=== PATIENT | male | born 1955 | race American Indian/Alaskan Native ===

== ENCOUNTER 2017-08-03 14:21 | Inpatient (IN) | payer OTHER ==
[2017-08-03 14:33] VITALS: BMI 27.3
[2017-08-03] MEDS ORDERED: Sodium Chloride 0.9% 1,000 ML IV ONE ×2 (14:33→14:34)
--- NOTE | 2017-08-03 14:33 | C.PDOC ---
History Of Present Illness <Donna Blake - Last Filed: 08/03/17 14:55> <BatshevaNicole irby - Last Filed: 08/06/17 22:18> 62 y/o male with Hx of COPD brought by ems with complaints of sob while driving. As per EMS Patient was driving by the tunnel and felt sob, pulled over and called 911. Patient had decreased breath sounds, became hypoxic, apneic, unresponsive and attempted to be intubated on the field x2 times unsuccessfully secondary to anatomic obstruction as per EMS. Patient was given Solumedrol, Terbutiliine and magnesium s/p RSI drugs. As per ems patient denies angioedema. No other complaints at this time. (Donna Blake) History Per: EMS History/Exam Limitations: clinical condition Onset/Duration Of Symptoms: Hrs Current Symptoms Are (Timing): Still Present Initiating Event: Upper Respiratory Illness <Donna Blake - Last Filed: 08/03/17 14:55> <BatshevaNicole irby Donnell - Last Filed: 08/06/17 22:18> Time Seen by Provider: 08/03/17 14:32 Chief Complaint (Nursing): Respiratory Distress Past Medical History Reviewed: Historical Data, Nursing Documentation, Vital Signs - Medical History PMH: COPD Surgical History: No Surg Hx Family History: States: No Known Family Hx <Donna Blake - Last Filed: 08/03/17 14:55> Vital Signs: Last Vital Signs Temp 97.8 F 08/06/17 16:04 Pulse 71 08/06/17 16:04 Resp 20 08/06/17 16:04 BP 154/81 H 08/06/17 16:04 Pulse Ox 98 08/06/17 16:04 Review Of Systems Review Of Systems: ROS cannot be obtained secondary to pt's inabilty to answer questions. <Donna Blake - Last Filed: 08/03/17 14:55> Physical Exam - Physical Exam Appears: Other (Unresponsive) Skin: Warm, Diaphoretic Head: Normacephalic Oral Mucosa: Moist, Other (LMA PRESENT) Tongue: Normal Appearing, No Swelling Lips: Normal Appearing Neck: Normal, Trachea Midline Chest: Other (equal chest rise ) Cardiovascular: Rhythm Regular, Other (Tachycardic) Respiratory: Decreased Breath Sounds (Bilateral), No Accessory Muscle Use (NO SPONT RESP), No Wheezing Gastrointestinal/Abdominal: Soft, No Tenderness Extremity: No Pedal Edema, Capillary Refill Extremity: Bilateral: Atraumatic, No Pedal Edema Pulses: Left Radial: Normal, Right Radial: Normal Neurological/Psych: No Response To Commands, Other (UNRESPONSIVE) Pain Response: No Response To Pain <Donna Blake - Last Filed: 08/03/17 14:55> ED Course And Treatment - Laboratory Results Result Diagrams: 08/03/17 14:41 08/03/17 14:41 ECG: Interpreted By Me, Viewed By Me ECG Rhythm: Sinus Tachycardia ECG Interpretation: Abnormal Rate From EC (bpm) O2 Sat by Pulse Oximetry: 96 (RA) Pulse Ox Interpretation: Normal - Radiology CXR: Interpreted by Me CXR Interpretation: Yes: Other (ETT AT [facility]) <Donna Blake - Last Filed: 08/03/17 14:55> - Laboratory Results Result Diagrams: 08/05/17 06:33 08/05/17 06:33 <Nicole Herman - Last Filed: 08/06/17 22:18> Progress - Data Reviewed Data Reviewed: Lab, Diagnostic imaging, EKG, Old records - Critical Care Citical Care: Excluding Proc Time Critical Care Time: 120 minutes - Continuity of Care Discussed patient case with:: Patient Discussed pt. case with data power consultant/specialty: Pulmonary/Crit. Care <Donna Blake - Last Filed: 08/03/17 14:55> <Nicole Herman - Last Filed: 08/06/17 22:18> - Re-Evaluation Re-evaluation Note: 08/03/17 14:15 anesthesia, dr hilario @ bedside for emergent intubation. (Donna Blake) Disposition <Donna Blake - Last Filed: 08/03/17 14:55> - Disposition Disposition Time: 16:09 <Nicole Herman - Last Filed: 08/06/17 22:18> - Disposition Condition: FAIR - Clinical Impression Clinical Impression: Respiratory failure, Asthma exacerbation - Scribe Statement The provider has reviewed the documentation as recorded by the Scribe <Donna Blake - Last Filed: 08/03/17 14:55> <Nicole Herman - Last Filed: 08/06/17 22:18> - Scribe Statement Edgardo Morrissey All medical record entries made by the Scribe were at my direction and personally dictated by me. I have reviewed the chart and agree that the record accurately reflects my personal performance of the history, physical exam, medical decision making, and the department course for this patient. I have also personally directed, reviewed, and agree with the discharge instructions and disposition. (Donan Blake) Physician Patient Turnover Patient Signed Over To: Nicole Herman Handoff Comments: FU LABS, REPEAT CXR, DISPO <Donna Blake - Last Filed: 08/03/17 14:55> Addendum <Donna Blake - Last Filed: 08/03/17 14:55> <Nicole Herman - Last Filed: 08/06/17 22:18> Addendum: 08/03/17 16:[address] Fields, she agrees with ICU admission for asthma /copd exacerbation, respiratory failure- intenisivist Dr. Hilario aware. ( Nicole Herman)
[2017-08-03] MEDS ORDERED: Etomidate 20 mg/10ml Inj IV STA (14:35)
[2017-08-03] MEDS ORDERED: Succinylcholine Chloride 20 mg/ml Syr (5 ml) IV STA (14:35)
[2017-08-03 14:45] LABS: BASO # 0.1 K/uL (0.0-0.2); BASO % 0.5 % (0.0-2.0); EOS # 0.3 K/uL (0.0-0.7); LYMPH # 3.9 K/uL (1.0-4.3); LYMPH % 38.1 % (20.0-40.0); MEAN CELL VOLUME 86.7 fL (80.0-94.0); MEAN CORPUSCULAR HEMOGLOBIN 27.9 pg (27.0-31.0); MEAN CORPUSCULAR HGB CONC 32.2 g/dL (33.0-37.0); MEAN PLATELET VOLUME 10.5 fL (7.2-11.7); MONO # 0.6 K/uL (0.0-0.8); MONO % 5.8 % (0.0-10.0); NRBC % 0.1 % (0.0-2.0); WHITE BLOOD COUNT 10.1 K/uL (4.8-10.8)
[2017-08-03] MEDS ORDERED: Propofol 10 mg/ml Inj (100 ml) IV SCH (14:45)
[2017-08-03] MEDS ORDERED: Propofol 10 mg/ml Inj (20 ML) IV STA (14:47)
[2017-08-03] MEDS ORDERED: Propofol 10 mg/ml 1,000 MG/100 ML VIAL ONE (14:48)
[2017-08-03 14:53] LABS: CHLORIDE 96 mmol/L (98-107); POTASSIUM 4.4 mmol/L (3.6-5.2); SODIUM 135 mmol/L (132-148)
[2017-08-03 14:55] LABS: AST/SGOT 27 U/L (17-59); BILIRUBIN,TOTAL 0.7 mg/dL (0.2-1.3); CARBON DIOXIDE 24 mmol/L (22-30); GFR AFRICAN-AMERICAN > 60
[2017-08-03 14:56] LABS: ALB/GLOB RATIO 1.2 (1.0-2.1); ALKALINE PHOSPHATASE 105 U/L (38-126); ALT/SGPT 30 U/L (21-72); BLOOD UREA NITROGEN 15 mg/dL (9-20); CALCIUM 8.2 mg/dl (8.6-10.4); GLUCOSE,RANDOM 216 mg/dL (75-110); TOTAL PROTEIN 7.6 g/dL (6.3-8.3)
[2017-08-03] MEDS ORDERED: Propofol 10 mg/ml Inj (20 ML) ONE (14:57)
[2017-08-03] MEDS: Propofol 10 mg/ml 1,000 MG/100 ML VIAL IV PRN ×2 (15:08→23:46)
[2017-08-03] MEDS ORDERED: Albuterol-Ipratrop 3 mg / 0.5 (3 ml) UD ONE (15:24)
[2017-08-03] MEDS ORDERED: Sodium Chloride 0.9% 1,000 ML ONE (15:33)
[2017-08-03] MEDS: Albuterol 0.083% Inhal Sol (2.5 mg/3 mL) UD INH SCH ×3 (15:35→16:01)
[2017-08-03 15:42] LABS: ABG ALLEN TEST POS; ABG MECHANICAL RATE 16; ARTERIAL BLOOD GAS MODE PRVC; ATERIAL BLOOD GAS PEEP 5; DRAW SITE RRA
--- NOTE | 2017-08-03 15:42 | RAD ---
HISTORY: REPEAT ETT ADJUST COMPARISON: Chest x-ray performed 08/03/17 at 1438 hours TECHNIQUE: Chest, one view. FINDINGS: Examination limited by habitus. LUNGS: Distal tip of the endotracheal tube terminates approximately 5.1 cm above the guru. 2 external defibrillator pads project over the left matt thorax limiting evaluation of the underlying parenchyma. No focal consolidation. Please note that chest x-ray has limited sensitivity for the detection of pulmonary masses. PLEURA: No significant pleural effusion identified. No definite pneumothorax . CARDIOVASCULAR: Heart size appears within normal limits. OSSEOUS STRUCTURES: Degenerative changes of the spine. VISUALIZED UPPER ABDOMEN: Unremarkable. OTHER FINDINGS: None. IMPRESSION: Distal tip of the endotracheal tube terminates approximately 5.1 cm above the guru. 2 external defibrillator pads project over the left matt thorax limiting evaluation of the underlying parenchyma.
--- NOTE | 2017-08-03 15:43 | RAD ---
HISTORY: SOB COMPARISON: No prior. TECHNIQUE: Chest, one view. FINDINGS: LUNGS: Distal tip of the endotracheal tube terminates approximately 6.3 cm above the guru. Two external defibrillator pads project over the left matt thorax obscuring evaluation of the underlying parenchyma. No focal consolidation. Please note that chest x-ray has limited sensitivity for the detection of pulmonary masses. PLEURA: No significant pleural effusion identified. No definite pneumothorax . CARDIOVASCULAR: Heart size appears within normal limits. OSSEOUS STRUCTURES: Degenerative changes. VISUALIZED UPPER ABDOMEN: Unremarkable. OTHER FINDINGS: None. IMPRESSION: Distal tip of the endotracheal tube terminates approximately 6.3 cm above the guru. Two external defibrillator pads project over the left matt thorax obscuring evaluation of the underlying parenchyma.
--- NOTE | 2017-08-03 16:52 | CP.PCM.CON ---
<Harrison Justice Cole - Last Filed: 08/03/17 19:08> History of Present Illness - History of Present Illness History of Present Illness: HPI: Patient is a 62 year old male with a past medical history of COPD and asthma who presents to the ED with respiratory distress. As per ED note, patient was driving while he started to experience shortness of breath. Patient pulled over on the side of the road in order to obtain assistance. On the field , intubation was attempted 2x unsuccessfully. Patient was given Solumedrol, Terbutiliine and magnesium s/p RSI drugs on the field. Patient was immediately intubated upon arrival to the ED. Therefore, ROS and history was not obtained. Review of Systems - Review of Systems Review of Systems: Unable to obtain due to patient being intubated. Past Patient History - Past Social History Smoking Status: Unknown If Ever Smoked - PULMONARY Hx Chronic Obstructive Pulmonary Disease (COPD): Yes - PSYCHIATRIC Hx Substance Use: No Meds Allergies/Adverse Reactions: Allergies Allergy/AdvReac Type Severity Reaction Status Date / Time Unobtainable Allergy Unverified 08/03/17 14:27 - Medications Medications: Current Medications Sodium Chloride (Sodium Chloride 0.9%) 1,000 mls @ 250 mls/hr IV .Q4H ONE Stop: 08/03/17 18:32 Last Admin: 08/03/17 15:15 Dose: 250 mls/hr Propofol (Diprivan) 1,000 mg in 100 mls @ 2.381 mls/hr IV .Q24H PRN; Protocol; 5 MCG/KG/MIN PRN Reason: TITRATE PER MD ORDER Last Titration: 08/03/17 16:30 Dose: 10 mcg/kg/min, 4.763 mls/hr Physical Exam - Head Exam Head Exam: ATRAUMATIC - Respiratory Exam Respiratory Exam: Clear to Auscultation Bilateral, NORMAL BREATHING PATTERN - Cardiovascular Exam Cardiovascular Exam: REGULAR RHYTHM, +S1, +S2 - GI/Abdominal Exam GI & Abdominal Exam: Normal Bowel Sounds, Soft - Extremities Exam Extremities exam: Negative for: pedal edema, tenderness (Patient is intubated ) Results - Vital Signs Recent Vital Signs: Last Vital Signs Temp 98.9 F 08/03/17 16:22 Pulse 115 H 08/03/17 16:22 Resp 16 08/03/17 16:22 BP 127/61 08/03/17 16:22 Pulse Ox 100 08/03/17 16:22 - Labs Result Diagrams: 08/03/17 14:41 08/03/17 14:41 Labs: Laboratory Results - last 24 hr 08/03/17 08/03/17 08/03/17 14:41 14:41 15:39 WBC 10.1 RBC 5.54 Hgb 15.5 Hct 48.0 MCV 86.7 MCH 27.9 MCHC 32.2 L RDW 14.0 Plt Count 182 MPV 10.5 Neut % (Auto) 52.6 Lymph % (Auto) 38.1 [place] % (Auto) 5.8 Eos % (Auto) 3.0 Baso % (Auto) 0.5 Neut # 5.3 Lymph # 3.9 [place] # 0.6 Eos # 0.3 Baso # 0.1 Puncture Site Rra pCO2 61 H pO2 171 H HCO3 23.7 ABG pH 7.25 L ABG Total CO2 28.7 H ABG O2 Saturation 99.7 H ABG Base Excess -1.7 Gerald Test Pos ABG Potassium 3.7 A-a O2 Difference 466.0 Respiratory Index 2.7 Glucose 169 H Lactate 1.4 Vent Mode Prvc Mechanical Rate 16 FiO2 100.0 Tidal Volume 500 PEEP 5 Sodium 135 135.0 Potassium 4.4 Chloride 96 L 105.0 Carbon Dioxide 24 Anion Gap 19 BUN 15 Creatinine 1.1 Est GFR ( Amer) > 60 Est GFR (Non-Af Amer) > 60 Random Glucose 216 H Calcium 8.2 L Magnesium 3.0 H Total Bilirubin 0.7 AST 27 ALT 30 Alkaline Phosphatase 105 Troponin I < 0.0120 NT-Pro-B Natriuret Pep 33.1 Total Protein 7.6 Albumin 4.1 Globulin 3.5 Albumin/Globulin Ratio 1.2 Arterial Blood Potassium 3.7 Assessment & Plan - Assessment and Plan (Free Text) Assessment: 62 year old male with past medical history of COPD admitted for respiratory distress: Plan: PULM: * Intubated upon arrival to the ER on sedation * Sedation: Propofol 1,000mg @ 2.381mls/hr IV Q24H * Duonebs 3ML INH RQ6 * Pulmicort 0.5mg INH RQ12H * Solumedrol 40mg Q12H * F/u am chest X-ray and ABGs Prophylaxis: DVT: heparin 5,000 units SC Q12H, SCDs GI: Protonix 40mg IVP daily <Dev Hilario P - Last Filed: 08/03/17 20:21> Meds - Medications Medications: Current Medications Albuterol/Ipratropium (Duoneb 3 Mg/0.5 Mg (3 Ml) Ud) 3 ml INH RQ6 [facility] Budesonide (Pulmicort Respules) 0.5 mg INH RQ12 [facility] Heparin Sodium (Porcine) (Heparin) 5,000 units SC Q12 [facility] Sodium Chloride (Sodium Chloride 0.9%) 1,000 mls @ 250 mls/hr IV .Q4H ONE Stop: 08/03/17 18:32 Last Admin: 08/03/17 15:15 Dose: 250 mls/hr Propofol (Diprivan) 1,000 mg in 100 mls @ 2.381 mls/hr IV .Q24H PRN; Protocol; 5 MCG/KG/MIN PRN Reason: TITRATE PER MD ORDER Last Titration: 08/03/17 16:30 Dose: 10 mcg/kg/min, 4.763 mls/hr Methylprednisolone (Solu-Medrol) 40 mg IV Q12 [facility] Pantoprazole Sodium (Protonix Inj) 40 mg IVP DAILY [facility] Results - Vital Signs Recent Vital Signs: Last Vital Signs Temp 98.6 F 08/03/17 16:46 Pulse 105 H 08/03/17 18:10 Resp 20 08/03/17 18:10 BP 113/67 08/03/17 17:41 Pulse Ox 99 08/03/17 18:10 - Labs Result Diagrams: 08/03/17 14:41 08/03/17 14:41 Labs: Laboratory Results - last 24 hr 08/03/17 08/03/17 08/03/17 14:41 14:41 15:39 WBC 10.1 RBC 5.54 Hgb 15.5 Hct 48.0 MCV 86.7 MCH 27.9 MCHC 32.2 L RDW 14.0 Plt Count 182 MPV 10.5 Neut % (Auto) 52.6 Lymph % (Auto) 38.1 [place] % (Auto) 5.8 Eos % (Auto) 3.0 Baso % (Auto) 0.5 Neut # 5.3 Lymph # 3.9 [place] # 0.6 Eos # 0.3 Baso # 0.1 Puncture Site Rra pCO2 61 H pO2 171 H HCO3 23.7 ABG pH 7.25 L ABG Total CO2 28.7 H ABG O2 Saturation 99.7 H ABG Base Excess -1.7 Gerald Test Pos ABG Potassium 3.7 A-a O2 Difference 466.0 Respiratory Index 2.7 Glucose 169 H Lactate 1.4 Vent Mode Prvc Mechanical Rate 16 FiO2 100.0 Tidal Volume 500 PEEP 5 Sodium 135 135.0 Potassium 4.4 Chloride 96 L 105.0 Carbon Dioxide 24 Anion Gap 19 BUN 15 Creatinine 1.1 Est GFR ( Amer) > 60 Est GFR (Non-Af Amer) > 60 Random Glucose 216 H Calcium 8.2 L Magnesium 3.0 H Total Bilirubin 0.7 AST 27 ALT 30 Alkaline Phosphatase 105 Troponin I < 0.0120 NT-Pro-B Natriuret Pep 33.1 Total Protein 7.6 Albumin 4.1 Globulin 3.5 Albumin/Globulin Ratio 1.2 Arterial Blood Potassium 3.7 Attending/Attestation - Attestation I have personally seen and examined this patient.: Yes I have fully participated in the care of the patient.: Yes I have reviewed all pertinent clinical information: Yes Notes (Text): 08/03/17 18:27 Patient seen in ER brought in by EMT with Joshua's tube, intubated by me with tube 7.5 see intubation note. As per the EMT patient was driving felt sob and pulled over, was speaking in words when see by EMP appeared to be wheezing and failed intuabation 2 attempts at the field and brought sedated with Joshua's tube. VS maintained spo2 94% in ER. Patient had diminished breath sounds b/l. Post intubation had wheezing b/l. Patient sedated. CXR didn't show any infiltrate. Patient brought in to ICU being w/u. PMH, psh, meds, family details not available. 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
[2017-08-03 18:34] LABS: INR 1.1
[2017-08-03 19:04] LABS: RBC URINE 180 /hpf (0-3); URINE BILIRUBIN NEGATIVE (NEGATIVE); URINE BLOOD 3+ (NEGATIVE); URINE COLOR Yellow (YELLOW); URINE GLUCOSE (UA) NORMAL (Normal); URINE KETONE NEGATIVE (NEGATIVE); URINE LEUKOCYTE ESTERASE TRACE Leu/uL (Negative); URINE PROTEIN 1+ mg/dL (NEGATIVE); URINE UROBILINOGEN NORMAL mg/dL (0.2-1.0); WBC URINE 4 /hpf (0-5)
[2017-08-03 19:21] LABS: ABG ALLEN TEST POS; ABG MECHANICAL RATE 20; ARTERIAL BLOOD GAS MODE A/C; ARTERIAL BLOOD HGB O2 SAT 97.5 % (95.0-98.0); ATERIAL BLOOD GAS PEEP 5; CARBOXYHEMOGLOBIN 1.2 % (0.5-1.5); DRAW SITE RRA; HHB 0.3 % (0.0-5.0)
[2017-08-03] MEDS ORDERED: Moxifloxacin IV 400mg/250ml NS 400 MG/250 ML BAG IVPB SCH (19:30)
[2017-08-03] MEDS: Sodium Chloride 0.9% 1,000 ML IV SCH (20:10)
[2017-08-03] MEDS: Albuterol-Ipratrop 3 mg / 0.5 (3 ml) UD INH SCH (20:12)
[2017-08-03] MEDS: Budesonide 0.5 mg/2 ml Inhal Susp UD INH SCH (20:12)
--- NOTE | 2017-08-03 20:40 | PCM.PROC ---
Procedures Attestation:: I certify that I have explained the specified Operation(s) or Procedure(s), risks, benefits and reasonable alternatives to the Patient and/or other person responsible. The opportunity was given to ask questions and all questions answered - Intubation Time Out Performed: Yes Sedative: Etomidate, Other (ativan 2mg iv) Paralytic: Succinylholine (60mg) Laryngoscope: [place] (4) ET Tube Size: 7.5 ET Tube Uncuffed: No ET Tube Secured at Depth: 24 ET Tube Secured [place]: Lips ET Tube Placement Confirmation: Visualized Passing Through Cords, Breath Sounds Equal Bilaterally, No Breath Sounds Over Epigastrum, Confirmation w/Capnometry Patient Tolerated Procedure: Well Procedure Immediate Complications: None (ET tip above guru)
[2017-08-03] MEDS ORDERED: Iohexol 350mg/ml 100 ML ONE (21:34)
[2017-08-03] MEDS: MethylPREDNISolone 40 mg Vial IV SCH (22:06)
--- NOTE | 2017-08-03 22:25 | CP.PCM.HP ---
History of Present Illness - History of Present Illness History of Present Illness: pt is seen and examined , H & P dictated for. Dr. Campbell #[id number] Present on Admission - Present on Admission Any Indicators Present on Admission: No History of DVT/PE: No History of Uncontrolled Diabetes: No Urinary Catheter: No Past Patient History - Past Social History Smoking Status: Unknown If Ever Smoked - PULMONARY Hx Chronic Obstructive Pulmonary Disease (COPD): Yes - PSYCHIATRIC Hx Substance Use: No Meds Allergies/Adverse Reactions: Allergies Allergy/AdvReac Type Severity Reaction Status Date / Time Unobtainable Allergy Unverified 08/03/17 14:27 Results - Vital Signs Recent Vital Signs: Last Vital Signs Temp 98.6 F 08/03/17 16:46 Pulse 94 H 08/03/17 19:10 Resp 20 08/03/17 19:10 BP 103/76 08/03/17 18:41 Pulse Ox 100 08/03/17 19:10 - Labs Result Diagrams: 08/03/17 14:41 08/03/17 14:41 Labs: Laboratory Results - last 24 hr 08/03/17 08/03/17 08/03/17 14:41 14:41 15:39 WBC 10.1 RBC 5.54 Hgb 15.5 Hct 48.0 MCV 86.7 MCH 27.9 MCHC 32.2 L RDW 14.0 Plt Count 182 MPV 10.5 Neut % (Auto) 52.6 Lymph % (Auto) 38.1 [place] % (Auto) 5.8 Eos % (Auto) 3.0 Baso % (Auto) 0.5 Neut # 5.3 Lymph # 3.9 [place] # 0.6 Eos # 0.3 Baso # 0.1 PT INR APTT D-Dimer, Quantitative Puncture Site Rra pCO2 61 H pO2 171 H HCO3 23.7 ABG pH 7.25 L ABG Total CO2 28.7 H ABG O2 Saturation 99.7 H ABG Base Excess -1.7 ABG Hemoglobin ABG Carboxyhemoglobin POC ABG HHb (Measured) ABG Methemoglobin Gerald Test Pos ABG Potassium 3.7 A-a O2 Difference 466.0 Respiratory Index 2.7 Hgb O2 Saturation Glucose 169 H Lactate 1.4 Vent Mode Prvc Mechanical Rate 16 FiO2 100.0 Tidal Volume 500 PEEP 5 Sodium 135 135.0 Potassium 4.4 Chloride 96 L 105.0 Carbon Dioxide 24 Anion Gap 19 BUN 15 Creatinine 1.1 Est GFR ( Amer) > 60 Est GFR (Non-Af Amer) > 60 Random Glucose 216 H Calcium 8.2 L Magnesium 3.0 H Total Bilirubin 0.7 AST 27 ALT 30 Alkaline Phosphatase 105 Troponin I < 0.0120 NT-Pro-B Natriuret Pep 33.1 Total Protein 7.6 Albumin 4.1 Globulin 3.5 Albumin/Globulin Ratio 1.2 Arterial Blood Potassium 3.7 Urine Color Urine Clarity Urine pH Ur Specific [place] Urine Protein Urine Glucose (UA) Urine Ketones Urine Blood Urine Nitrate Urine Bilirubin Urine Urobilinogen Ur Leukocyte Esterase Urine WBC (Auto) Urine RBC (Auto) Ur Squamous Epith Cells Urine Opiates Screen Urine Methadone Screen Ur Barbiturates Screen Ur Phencyclidine Scrn Ur Amphetamines Screen U Benzodiazepines Scrn U Oth Cocaine Metabols U Cannabinoids Screen 08/03/17 08/03/17 08/03/17 17:49 17:49 17:49 WBC RBC Hgb Hct MCV MCH MCHC RDW Plt Count MPV Neut % (Auto) Lymph % (Auto) [place] % (Auto) Eos % (Auto) Baso % (Auto) Neut # Lymph # [place] # Eos # Baso # PT 12.8 H INR 1.1 APTT 25 D-Dimer, Quantitative 859 H Puncture Site pCO2 pO2 HCO3 ABG pH ABG Total CO2 ABG O2 Saturation ABG Base Excess ABG Hemoglobin ABG Carboxyhemoglobin POC ABG HHb (Measured) ABG Methemoglobin Gerald Test ABG Potassium A-a O2 Difference Respiratory Index Hgb O2 Saturation Glucose Lactate Vent Mode Mechanical Rate FiO2 Tidal Volume PEEP Sodium Potassium Chloride Carbon Dioxide Anion Gap BUN Creatinine Est GFR ( Amer) Est GFR (Non-Af Amer) Random Glucose Calcium Magnesium Total Bilirubin AST ALT Alkaline Phosphatase Troponin I NT-Pro-B Natriuret Pep Total Protein Albumin Globulin Albumin/Globulin Ratio Arterial Blood Potassium Urine Color Yellow Urine Clarity Clear Urine pH 5.0 Ur Specific [place] 1.025 Urine Protein 1+ H Urine Glucose (UA) Normal Urine Ketones Negative Urine Blood 3+ H Urine Nitrate Negative Urine Bilirubin Negative Urine Urobilinogen Normal Ur Leukocyte Esterase Trace Urine WBC (Auto) 4 Urine RBC (Auto) 180 H Ur Squamous Epith Cells < 1 Urine Opiates Screen Negative Urine Methadone Screen Negative Ur Barbiturates Screen Negative Ur Phencyclidine Scrn Negative Ur Amphetamines Screen Negative U Benzodiazepines Scrn Positive U Oth Cocaine Metabols Negative U Cannabinoids Screen Negative 08/03/17 19:15 WBC RBC Hgb Hct MCV MCH MCHC RDW Plt Count MPV Neut % (Auto) Lymph % (Auto) [place] % (Auto) Eos % (Auto) Baso % (Auto) Neut # Lymph # [place] # Eos # Baso # PT INR APTT D-Dimer, Quantitative Puncture Site Rra pCO2 38 pO2 150 H HCO3 26.3 ABG pH 7.44 ABG Total CO2 27.0 ABG O2 Saturation 99.7 H ABG Base Excess 1.7 ABG Hemoglobin 14.4 ABG Carboxyhemoglobin 1.2 POC ABG HHb (Measured) 0.3 ABG Methemoglobin 1.0 Gerald Test Pos ABG Potassium A-a O2 Difference 195.0 Respiratory Index 1.3 Hgb O2 Saturation 97.5 Glucose Lactate Vent Mode A/c Mechanical Rate 20 FiO2 55.0 Tidal Volume 500 PEEP 5 Sodium Potassium Chloride Carbon Dioxide Anion Gap BUN Creatinine Est GFR ( Amer) Est GFR (Non-Af Amer) Random Glucose Calcium Magnesium Total Bilirubin AST ALT Alkaline Phosphatase Troponin I NT-Pro-B Natriuret Pep Total Protein Albumin Globulin Albumin/Globulin Ratio Arterial Blood Potassium Urine Color Urine Clarity Urine pH Ur Specific [place] Urine Protein Urine Glucose (UA) Urine Ketones Urine Blood Urine Nitrate Urine Bilirubin Urine Urobilinogen Ur Leukocyte Esterase Urine WBC (Auto) Urine RBC (Auto) Ur Squamous Epith Cells Urine Opiates Screen Urine Methadone Screen Ur Barbiturates Screen Ur Phencyclidine Scrn Ur Amphetamines Screen U Benzodiazepines Scrn U Oth Cocaine Metabols U Cannabinoids Screen
--- NOTE | 2017-08-03 23:43 | CT ---
EXAM: CT Head Without Intravenous Contrast CLINICAL HISTORY: 62 years old, male; Signs and symptoms; Altered mental status/memory loss; Additional info: AMS TECHNIQUE: Axial computed tomography images of the head/brain without intravenous contrast. All CT scans at this facility use one or more dose reduction techniques, viz.: automated exposure control; ma/kV adjustment per patient size (including targeted exams where dose is matched to indication; i.e. head); or iterative reconstruction technique. COMPARISON: No relevant prior studies available. FINDINGS: Brain: Mild atrophy. No intracranial hemorrhage. No mass. No definite edema. Ventricles: No hydrocephalus. Bones/joints: No acute fracture. Soft tissues: Unremarkable. Sinuses: Complete opacification/inspissated mucous of frontal, RIGHT ethmoid, LEFT sphenoid sinuses. Near complete opacification of LEFT ethmoid sinus. Moderate mucosal thickening/mild fluid/inspissated mucous of RIGHT sphenoid sinus. Moderate mucosal thickening/minimal fluid/inspissated mucous of RIGHT maxillary sinus. Extensive mucosal thickening/moderate fluid/inspissated mucous of LEFT maxillary sinus. Mastoid air cells: No mastoid effusion. Orbits: Unremarkable as visualized. Tubes, lines and devices: Endotracheal tube. IMPRESSION: 1. No definite acute intracranial abnormality. Acute infarction may be CT occult within first 24 hours. If a focal deficit persists, consider followup CT or MRI for further evaluation. 2. Sinus disease.
--- NOTE | 2017-08-03 23:54 | CT ---
EXAM: CT Chest With Intravenous Contrast CLINICAL HISTORY: 62 years old, male; Signs and symptoms; Dyspnea; Additional info: Pe TECHNIQUE: Axial computed tomography images of the chest with intravenous contrast during the arterial phase of enhancement. All CT scans at this facility use one or more dose reduction techniques, viz.: automated exposure control; ma/kV adjustment per patient size (including targeted exams where dose is matched to indication; i.e. head); or iterative reconstruction technique. Coronal and sagittal reformatted images were created and reviewed. CONTRAST: 100 mL of visipaque administered intravenously. COMPARISON: No relevant prior studies available. FINDINGS: Limitations: Motion artifact - mild. Pulmonary arteries: No definite pulmonary embolism. Aorta: Minimal atherosclerotic disease of aorta. No aneurysm. Lungs: Mild bronchial wall thickening of lower lobe bronchi. Partial occlusion of lower lobe bronchi. Moderate confluent consolidation with associated volume loss within LEFT lower lobe. Mild patchy groundglass/reticulonodular opacities within RIGHT lower lobe, RIGHT lung apex. Mild peripheral atelectasis. RIGHT upper lobe calcified granuloma. Few subpleural nodules and/or scarring, up to 0.2 cm. Pleural space: No significant effusion. No pneumothorax. Heart: No cardiomegaly. No significant pericardial effusion. Bones/joints: Mild degenerative changes of spine. No acute fracture. Soft tissues: Unremarkable. Lymph nodes: No pathologically enlarged lymph nodes. Tubes, lines and devices: Endotracheal tube, tip located approximately 3 cm from guru. IMPRESSION: 1. No definite CT evidence of pulmonary embolism. 2. LEFT lower lobe atelectasis. Superimposed pneumonia is not excluded. Followup to resolution to exclude underlying pathology. 3. Lower lobe bronchial wall thickening, likely infectious or inflammatory in etiology. 4. Reticulonodular opacities, nonspecific. Consider inflammatory, infectious, or neoplastic etiologies. Followup to resolution. 5. Pulmonary nodules. For low-risk patients, no follow-up is necessary. For high-risk patients (smoking history or other known risk factors) an optional CT at 12 months could be performed. 6. Incidental/non-acute findings are described above.
[2017-08-04] MEDS: Albuterol-Ipratrop 3 mg / 0.5 (3 ml) UD INH SCH ×3 (00:59→20:25)
--- NOTE | 2017-08-04 02:17 | HP ---
The patient is seen and examined. The patient is located in ICU bed #4. HISTORY OF PRESENT ILLNESS: Mr. Garza is 62 years old male with past medical history of hypertension about 3 years and history of asthma, pneumonia, who was driving in the middle of the street and he was short of breath and he pulled over by himself and called 911 and the EMS tried to intubate twice in the field, unsuccessful and the patient was brought to the emergency room and intubated in the emergency room and unable to get any history from the patient. The patient is on ventilator and also under sedation. I just spoke to the patient's daughter Deisy on the phone and most of the history obtained from the patient's daughter. The patient is on ventilator, under sedation, not in distress, tried to move on the bed, moving all 4 extremities. PAST MEDICAL HISTORY: Significant for asthma, pneumonia and hypertension for about 3 years. As per the patient's daughter, no hypercholesterolemia, no diabetes, no coronary artery disease, no CVA and no thyroid issues in the past. PAST SURGICAL HISTORY: None. SOCIAL HISTORY: No smoking, ex-alcohol abuse. No drug abuse. ALLERGIES: NO KNOWN DRUG ALLERGIES. PERSONAL HISTORY: He is and has 2 children and he lives with his girl friend. FAMILY HISTORY: Both parents , father and mother and also he has 4 brothers and one . He has 3 sisters. He has 2 children. CURRENT MEDICATIONS: In the hospital include as follows: Avelox 400 mg, IV piggyback daily, propofol, albuterol and ipratropium inhaler q. 6 hours, subcutaneous heparin 5000 q.12 hours, Protonix 40 mg IV daily, Pulmicort 0.5 mg inhaler q.12 hours, IV fluid normal saline at 125 mL per hour and Solu-Medrol 40 mg IV q.12 hours. REVIEW OF SYSTEMS: Significant for the sudden onset of the shortness of breath and acute respiratory failure, on ventilator. All of the review of systems are reviewed and are negative. PHYSICAL EXAMINATION: GENERAL: Mr. Graza is 62 years old obese male, well-build, well-nourished, on ventilator under sedation. VITAL SIGNS: As follows, blood pressure 103/76, pulse 75, respiration 19, saturation 100% and temperature 99. His height is 5 feet and 7 inches and weight is 257 pounds. HEENT: Pupils are normal and reactive to light and accommodation. Conjunctivae pink. Sclerae anicteric. Trachea is midline. No thyroid enlargement. LUNGS: Symmetrical on both sides. Bilateral breath sounds present. No crackles. No wheeze at this time. CVS: [place] at the fifth intercostal space, half inch middle to midclavicular line. S1 and S2 audible. No murmur or gallop. ABDOMEN: Normal in appearance. Soft and tympanic. No guarding, no rigidity. No hepatosplenomegaly. No abdominal bruit. 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 EXTREMITIES: No cyanosis, no clubbing, no edema. Sensory and motor system is grossly within normal limits and moving all 4 extremities. LABORATORY DATA: Include as follows as of 08/03/2017 at 1441 hours, WBC 10.1, hemoglobin 15.5, hematocrit is 48 and platelets 182. PT 12.8, PTT 25 and D-dimer 859. ABG; pH 7.25, pCO2 61, pO2 171, bicarb 23.7, saturation 99%. Sodium 135, glucose 169, lactic acid 1.4 with a vent setting of 16 and FiO2 100%, tidal volume 500, PEEP of 5. Repeat ABG at 1915 hours, pH is 7.44, pCO2 38, pO2 150 and bicarb 27, saturation 99.7 and vent setting AC 25, 500 tidal volume, FiO2 55% and PEEP of 5. Other laboratory data as of 08/03/2017 at 1441 hours sodium 135, potassium 4.4, chloride 96, CO2 24, BUN 15, creatinine 1.1, glucose 216, calcium is 8.2, magnesium 3. Total bilirubin 0.7, AST 27, ALT 30, alkaline phos 105, proBNP 33.1, troponin 0.012 and total protein 7.6, albumin is 4.1. Urinalysis; yellow ,clear, pH 5, specific gravity 1.025, protein 1+, glucose normal, ketones negative, blood 3+, nitrites negative, bilirubin negative, urobilin normal. Leukocyte esterase trace and rbc 180, wbc 4, squamous epithelial 1. Urine tox screen positive for benzodiazepine. Chest x-ray; distal tip of the ET tube terminates approximately 6.3 cm above the guru, 2 external defibrillator pads project over the left hemithorax obscuring evaluation of the underlying parenchyma and repeat x-ray at 1457 hours. Distal tip of the ET tube terminates approximately 5 cm above the guru. IMPRESSION: In summary, Mr. Garza is 62 years old obese male with history of hypertension, asthma, pneumonia. He was admitted with sudden onset of shortness of breath while driving and pulled over himself and called 911 and EMS tried to intubate the patient, unsuccessful and the patient was brought to the emergency room and intubated in the emergency room. Now, the patient is in ICU under sedation on ventilator. 1. Acute respiratory failure, most likely secondary to exacerbation of acute asthmatic attack most likely. 2. Rule out pulmonary embolism. 3. Acute respiratory failure. PLAN: Continue IV fluids and check cardiac enzymes q. 8 hours and continue Solu-Medrol. Continue DuoNebs inhaler and Pulmicort. Case discussed with Dr. Buenrostro and also Dr. Hilario in ICU in rounds and also spoken to the patient's daughter on the phone. The patient is scheduled for the CAT scan and also CT angio to rule out PE. Check EKG and also troponin q. 8 hours x3. The patient seen and examined. Continue GI prophylaxis. Continue DVT prophylaxis. Dov Manzo MD
[2017-08-04] MEDS: Sodium Chloride 0.9% 1,000 ML IV SCH ×3 (04:05→21:15)
[2017-08-04 05:53] LABS: ABG ALLEN TEST POS; ABG MECHANICAL RATE 20; ARTERIAL BLOOD GAS MODE PRVC; ARTERIAL BLOOD HGB O2 SAT 97.6 % (95.0-98.0); ATERIAL BLOOD GAS PEEP 5; CARBOXYHEMOGLOBIN 1.1 % (0.5-1.5); DRAW SITE R RAD; HHB 0.3 % (0.0-5.0); METHEMOGLOBIN 1.1 % (0.0-3.0)
[2017-08-04 06:31] LABS: BASO % 0.1 % (0.0-2.0); EOS % 0.1 % (0.0-4.0); HEMATOCRIT 42.1 % (35.0-51.0); LYMPH % 11.6 % (20.0-40.0); MEAN CELL VOLUME 85.4 fL (80.0-94.0); MEAN CORPUSCULAR HGB CONC 32.8 g/dL (33.0-37.0); MEAN PLATELET VOLUME 10.6 fL (7.2-11.7); MONO # 0.2 K/uL (0.0-0.8); MONO % 1.9 % (0.0-10.0); NRBC % 0.1 % (0.0-2.0); RED CELL DISTRIBUTION WIDTH 13.8 % (11.5-14.5); WHITE BLOOD COUNT 8.4 K/uL (4.8-10.8)
[2017-08-04 06:37] LABS: CHLORIDE 105 mmol/L (98-107); SODIUM 141 mmol/L (132-148)
[2017-08-04 06:38] LABS: POTASSIUM 3.7 mmol/L (3.6-5.2)
[2017-08-04 06:39] LABS: GFR AFRICAN-AMERICAN > 60
[2017-08-04 06:40] LABS: ALKALINE PHOSPHATASE 77 U/L (38-126); ALT/SGPT 28 U/L (21-72); AST/SGOT 35 U/L (17-59); BILIRUBIN,TOTAL 0.7 mg/dL (0.2-1.3); BLOOD UREA NITROGEN 12 mg/dL (9-20); CARBON DIOXIDE 20 mmol/L (22-30); GLUCOSE,RANDOM 116 mg/dL (75-110); PHOSPHOROUS 3.4 mg/dL (2.5-4.5); TOTAL PROTEIN 6.2 g/dL (6.3-8.3)
[2017-08-04 06:41] LABS: CALCIUM 7.4 mg/dl (8.6-10.4)
[2017-08-04] MEDS: Budesonide 0.5 mg/2 ml Inhal Susp UD INH SCH (08:37)
[2017-08-04] MEDS: MethylPREDNISolone 40 mg Vial IV SCH ×2 (09:19→21:16)
--- NOTE | 2017-08-04 11:54 | CP.PCM.PN ---
Subjective - Date & Time of Evaluation Date of Evaluation: 08/04/17 Time of Evaluation: 11:40 - Subjective Subjective: Progress note dictated # [id number] Objective - Vital Signs/Intake and Output Vital Signs (last 24 hours): Temp Pulse Resp BP Pulse Ox 98.5 F 94 H 20 129/83 100 08/04/17 08:00 08/04/17 11:00 08/04/17 11:00 08/04/17 10:41 08/04/17 11:00 Intake and Output: 08/04/17 08/04/17 06:59 18:59 Intake Total 1558.6 707.7 Output Total 1275 505 Balance 283.6 202.7 - Medications Medications: Current Medications Albuterol/Ipratropium (Duoneb 3 Mg/0.5 Mg (3 Ml) Ud) 3 ml INH RQ6 [facility] Last Admin: 08/04/17 08:37 Dose: 3 ml Heparin Sodium (Porcine) (Heparin) 5,000 units SC Q12 [facility] Last Admin: 08/04/17 09:19 Dose: 5,000 units Sodium Chloride (Sodium Chloride 0.9%) 1,000 mls @ 125 mls/hr IV .Q8H [facility] Last Admin: 08/04/17 04:05 Dose: 125 mls/hr Methylprednisolone (Solu-Medrol) 40 mg IV Q12 [facility] Last Admin: 08/04/17 09:19 Dose: 40 mg Moxifloxacin HCl (Avelox) 400 mg PO DAILY [facility] Last Admin: 08/04/17 09:19 Dose: 400 mg Pantoprazole Sodium (Protonix Inj) 40 mg IVP DAILY [facility] Last Admin: 08/04/17 09:19 Dose: 40 mg - Labs Labs: 08/04/17 06:19 08/04/17 06:19 PT 12.8 SECONDS (9.7-12.2) H 08/03/17 17:49 INR 1.1 08/03/17 17:49 APTT 25 SECONDS (21-34) 08/03/17 17:49
[2017-08-04 12:18] LABS: ABG ALLEN TEST PO; ABG MECHANICAL RATE 10; ARTERIAL BLOOD GAS MODE A/C; ARTERIAL BLOOD HGB O2 SAT 97.1 % (95.0-98.0); ATERIAL BLOOD GAS PEEP 5; DRAW SITE RR; HHB 0.8 % (0.0-5.0); METHEMOGLOBIN 1.1 % (0.0-3.0)
[2017-08-04 14:30] LABS: ABG ALLEN TEST POS; ARTERIAL BLOOD GAS MODE CPAP; ARTERIAL BLOOD HGB O2 SAT 97.1 % (95.0-98.0); ATERIAL BLOOD GAS PEEP 5; CARBOXYHEMOGLOBIN 1.2 % (0.5-1.5); DRAW SITE RRAD; HHB 0.5 % (0.0-5.0); METHEMOGLOBIN 1.2 % (0.0-3.0)
--- NOTE | 2017-08-04 15:16 | CARD ---
APPROVED REPORT EXAM: Two-dimensional and M-mode echocardiogram with Doppler and color Doppler. Other Information Quality : GoodTechnically LimitedRhythm : NSR INDICATION Congestive Heart Failure COPD TDS, PATIENT ON VENT RISK FACTORS Obesity 2D DIMENSIONS IVSd1.1 (0.7-1.1cm)LVDd4.5 (3.9-5.9cm) PWd1.1 (0.7-1.1cm)LVDs2.5 (2.5-4.0cm) FS (%) 43.5 %LVEF (%)74.9 (>50%) M-Mode DIMENSIONS Left Atrium (MM)2.76 (2.5-4.0cm)Aortic Root3.19 (2.2-3.7cm) Aortic Cusp Exc.2.19 (1.5-2.0cm) Mitral Valve MV E Usqouffo76.0cm/sMV A Sgvxemjp877.7cm/sE/A ratio0.7 TDI E/Lateral E'0.0E/Medial E'0.0 LEFT VENTRICLE The left ventricle is normal size. There is mild concentric left ventricular hypertrophy. Left ventricle systolic function is normal. The Ejection Fraction is >70%. There is normal LV segmental wall motion. Transmitral Doppler flow pattern is Grade I-abnormal relaxation pattern. There is no ventricular septal defect visualized. RIGHT VENTRICLE The right ventricle is normal size. The right ventricular systolic function is normal. ATRIA The left atrium size is normal. The right atrium size is normal. AORTIC VALVE The aortic valve is mildly sclerotic. The aortic valve is probably tri-cuspid. No aortic regurgitation is present. There is no aortic valvular stenosis. MITRAL VALVE Mitral annular calcification is borderline. There is no evidence of mitral valve prolapse. There is no mitral valve regurgitation noted. TRICUSPID VALVE The tricuspid valve is not well visualized. There is no tricuspid valve regurgitation noted. PULMONIC VALVE The pulmonic valve is not well visualized. GREAT VESSELS The aortic root is mildly enlarged. The ascending aorta is not well seen. The IVC is normal in size and collapses >50% with inspiration. PERICARDIAL EFFUSION There is no pericardial effusion. <Conclusion> There is mild concentric left ventricular hypertrophy. Left ventricle systolic function is normal. The Ejection Fraction is >70%. Transmitral Doppler flow pattern is Grade I-abnormal relaxation pattern. The aortic root is mildly enlarged.
--- NOTE | 2017-08-04 17:04 | RAD ---
HISTORY: SOB COMPARISON: Comparison is made to 08/03/2017 FINDINGS: LUNGS: No significant interval change in the lungs since the previous exam. Questionable left retrocardiac space opacity noted. The ET tube is seen at appropriate position. PLEURA: No significant pleural effusion identified, no pneumothorax apparent. CARDIOVASCULAR: Normal. OSSEOUS STRUCTURES: No significant abnormalities. VISUALIZED UPPER ABDOMEN: The NG tube seen extending to the abdomen. OTHER FINDINGS: None. IMPRESSION: No significant interval change since the previous exam. Appropriate position of the support devices.
--- NOTE | 2017-08-04 17:16 | CP.CCUPN ---
<Harrison Justice E - Last Filed: 08/04/17 17:34> CCU Subjective - Physician Review Subjective (Free Text): Patient was seen and examined at bedside. Patient was alert and verbally responsive. Patient nodded no to any discomfort and understood what has happened to him. Patient was told that he will be placed on pressure support today and then possible extubation. Patient agrees and understands. CCU Objective - Vital Signs / Intake & Output Vital Signs (Last 4 hours): Vital Signs Pulse Resp BP Pulse Ox 08/04/17 15:00 104 H 18 100 08/04/17 14:41 105 H 15 138/90 100 08/04/17 14:00 99 H 21 100 08/04/17 13:41 103 H 17 141/89 100 Intake and Output (Last 8hrs): Intake & Output 08/04/17 08/04/17 08/04/17 06:59 14:59 22:59 Intake Total 1144.4 1192.7 125 Output Total 1050 830 150 Balance 94.4 362.7 -25 Intake: IV 66 70 Intake, IV Amount 1078.4 1022.7 125 Left Forearm 1000 1000 125 Left Wrist 78.4 22.7 Other 100 Output: Urine 1050 830 150 Urethral (Boyd) 1050 830 150 - Physical Exam Head: Positive for: Atraumatic, Normocephalic Extroacular Muscles: Positive for: EOMI Respiratory/Chest: Positive for: Clear to Auscultation. Negative for: Respiratory Distress, Accessory Muscle Use Cardiovascular: Positive for: Regular Rate and Rhythm, Normal S1, S2 Abdomen: Positive for: Normal Bowel Sounds. Negative for: Tenderness, Distention, Rebound Upper Extremity: Positive for: Normal Inspection. Negative for: Edema Lower Extremity: Positive for: Normal Inspection. Negative for: Edema Neurological: Positive for: GCS=15 Skin: Positive for: Warm, Normal Color Psychiatric: Positive for: Alert, Oriented x 3 - Medications Active Medications: Active Medications Generic Name Dose Route Start Last Admin Trade Name Freq PRN Reason Stop Dose Admin Albuterol/Ipratropium 3 ml 08/03/17 20:00 08/04/17 08:37 Duoneb 3 Mg/0.5 Mg (3 Ml) Ud INH 3 ml RQ6 RADHA Administration Heparin Sodium (Porcine) 5,000 units 08/03/17 22:00 08/04/17 09:19 Heparin SC 5,000 units Q12 RADHA Administration Sodium Chloride 1,000 mls @ 125 mls/hr 08/03/17 20:00 08/04/17 12:38 Sodium Chloride 0.9% IV 125 mls/hr .Q8H RADHA Administration Methylprednisolone 40 mg 08/03/17 22:00 08/04/17 09:19 Solu-Medrol IV 40 mg Q12 RADHA Administration Moxifloxacin HCl 400 mg 08/03/17 22:00 08/04/17 09:19 Avelox PO 400 mg DAILY RADHA Administration Pantoprazole Sodium 40 mg 08/04/17 10:00 08/04/17 09:19 Protonix Inj IVP 40 mg DAILY RADHA Administration - Patient Studies Lab Studies: Lab Studies 08/04/17 08/04/17 08/04/17 Range/Units 14:28 12:15 06:19 WBC (4.8-10.8) K/uL RBC (4.40-5.90) Mil/uL Hgb (12.0-18.0) g/dL Hct (35.0-51.0) % MCV (80.0-94.0) fL MCH (27.0-31.0) pg MCHC (33.0-37.0) g/dL RDW (11.5-14.5) % Plt Count (130-400) K/uL MPV (7.2-11.7) fL Neut % (Auto) (50.0-75.0) % Lymph % (Auto) (20.0-40.0) % Alexander % (Auto) (0.0-10.0) % Eos % (Auto) (0.0-4.0) % Baso % (Auto) (0.0-2.0) % Neut # (1.8-7.0) K/uL Lymph # (1.0-4.3) K/uL Alexander # (0.0-0.8) K/uL Eos # (0.0-0.7) K/uL Baso # (0.0-0.2) K/uL PT (9.7-12.2) SECONDS INR APTT (21-34) SECONDS D-Dimer, Quantitative (0-243) ng/mlDDU Puncture Site Rrad Rr pCO2 36 34 L (35-45) mm/Hg pO2 130 H 128 H (80-100) mm/Hg HCO3 24.8 25.1 (21-28) mmol/L ABG pH 7.43 7.45 (7.35-7.45) ABG Total CO2 25.0 24.6 (22-28) mmol/L ABG O2 Saturation 99.5 H 99.2 H (95-98) % ABG Base Excess -0.1 0.2 (-2.0-3.0) mmol/L ABG Hemoglobin 14.0 14.3 (11.7-17.4) g/dL ABG Carboxyhemoglobin 1.2 1.0 (0.5-1.5) % POC ABG HHb (Measured) 0.5 0.8 (0.0-5.0) % ABG Methemoglobin 1.2 1.1 (0.0-3.0) % Gerald Test Pos Po A-a O2 Difference 110.0 115.0 mm/Hg Respiratory Index 0.8 0.9 Hgb O2 Saturation 97.1 97.1 (95.0-98.0) % Vent Mode Cpap A/c Mechanical Rate 10 FiO2 40.0 40.0 % Tidal Volume 500 PEEP 5 5 Pressure Support 10 Sodium 141 (132-148) mmol/L Potassium 3.7 (3.6-5.2) mmol/L Chloride 105 (98-107) mmol/L Carbon Dioxide 20 L (22-30) mmol/L Anion Gap 20 (10-20) BUN 12 (9-20) mg/dL Creatinine 0.8 (0.8-1.5) MG/DL Est GFR ( Amer) > 60 Est GFR (Non-Af Amer) > 60 Random Glucose 116 H (75-110) mg/dL Calcium 7.4 L (8.6-10.4) mg/dl Phosphorus 3.4 (2.5-4.5) mg/dL Magnesium 2.0 (1.6-2.3) mg/dL Total Bilirubin 0.7 (0.2-1.3) mg/dL AST 35 (17-59) U/L ALT 28 (21-72) U/L Alkaline Phosphatase 77 (38-126) U/L Total Protein 6.2 L (6.3-8.3) g/dL Albumin 3.1 L D (3.5-5.0) g/dL Globulin 3.1 (2.2-3.9) gm/dL Albumin/Globulin Ratio 1.0 (1.0-2.1) Urine Color (YELLOW) Urine Clarity (Clear) Urine pH (5.0-8.0) Ur Specific [place] (1.003-1.030) Urine Protein (NEGATIVE) mg/dL Urine Glucose (UA) (Normal) mg/dL Urine Ketones (NEGATIVE) mg/dL Urine Blood (NEGATIVE) Urine Nitrate (NEGATIVE) Urine Bilirubin (NEGATIVE) Urine Urobilinogen (0.2-1.0) mg/dL Ur Leukocyte Esterase (Negative) Armani/uL Urine WBC (Auto) (0-5) /hpf Urine RBC (Auto) (0-3) /hpf Ur Squamous Epith Cells (0-5) /hpf Urine Opiates Screen (NEGATIVE) Urine Methadone Screen (NEGATIVE) Ur Barbiturates Screen (NEGATIVE) Ur Phencyclidine Scrn (NEGATIVE) Ur Amphetamines Screen (NEGATIVE) U Benzodiazepines Scrn (NEGATIVE) U Oth Cocaine Metabols (NEGATIVE) U Cannabinoids Screen (NEGATIVE) 08/04/17 08/04/17 08/03/17 Range/Units 06:19 05:33 19:15 WBC 8.4 (4.8-10.8) K/uL RBC 4.93 (4.40-5.90) Mil/uL Hgb 13.8 (12.0-18.0) g/dL Hct 42.1 (35.0-51.0) % MCV 85.4 (80.0-94.0) fL MCH 28.0 (27.0-31.0) pg MCHC 32.8 L (33.0-37.0) g/dL RDW 13.8 (11.5-14.5) % Plt Count 158 (130-400) K/uL MPV 10.6 (7.2-11.7) fL Neut % (Auto) 86.3 H (50.0-75.0) % Lymph % (Auto) 11.6 L (20.0-40.0) % Alexander % (Auto) 1.9 (0.0-10.0) % Eos % (Auto) 0.1 (0.0-4.0) % Baso % (Auto) 0.1 (0.0-2.0) % Neut # 7.2 H (1.8-7.0) K/uL Lymph # 1.0 (1.0-4.3) K/uL Alexander # 0.2 (0.0-0.8) K/uL Eos # 0.0 (0.0-0.7) K/uL Baso # 0.0 (0.0-0.2) K/uL PT (9.7-12.2) SECONDS INR APTT (21-34) SECONDS D-Dimer, Quantitative (0-243) ng/mlDDU Puncture Site R rad Rra pCO2 36 38 (35-45) mm/Hg pO2 172 H 150 H (80-100) mm/Hg HCO3 23.8 26.3 (21-28) mmol/L ABG pH 7.41 7.44 (7.35-7.45) ABG Total CO2 23.9 27.0 (22-28) mmol/L ABG O2 Saturation 99.7 H 99.7 H (95-98) % ABG Base Excess -1.4 1.7 (-2.0-3.0) mmol/L ABG Hemoglobin 14.4 14.4 (11.7-17.4) g/dL ABG Carboxyhemoglobin 1.1 1.2 (0.5-1.5) % POC ABG HHb (Measured) 0.3 0.3 (0.0-5.0) % ABG Methemoglobin 1.1 1.0 (0.0-3.0) % Gerald Test Pos Pos A-a O2 Difference 140.0 195.0 mm/Hg Respiratory Index 0.8 1.3 Hgb O2 Saturation 97.6 97.5 (95.0-98.0) % Vent Mode Prvc A/c Mechanical Rate 20 20 FiO2 50.0 55.0 % Tidal Volume 500 500 PEEP 5 5 Pressure Support Sodium (132-148) mmol/L Potassium (3.6-5.2) mmol/L Chloride (98-107) mmol/L Carbon Dioxide (22-30) mmol/L Anion Gap (10-20) BUN (9-20) mg/dL Creatinine (0.8-1.5) MG/DL Est GFR ( Amer) Est GFR (Non-Af Amer) Random Glucose (75-110) mg/dL Calcium (8.6-10.4) mg/dl Phosphorus (2.5-4.5) mg/dL Magnesium (1.6-2.3) mg/dL Total Bilirubin (0.2-1.3) mg/dL AST (17-59) U/L ALT (21-72) U/L Alkaline Phosphatase (38-126) U/L Total Protein (6.3-8.3) g/dL Albumin (3.5-5.0) g/dL Globulin (2.2-3.9) gm/dL Albumin/Globulin Ratio (1.0-2.1) Urine Color (YELLOW) Urine Clarity (Clear) Urine pH (5.0-8.0) Ur Specific [place] (1.003-1.030) Urine Protein (NEGATIVE) mg/dL Urine Glucose (UA) (Normal) mg/dL Urine Ketones (NEGATIVE) mg/dL Urine Blood (NEGATIVE) Urine Nitrate (NEGATIVE) Urine Bilirubin (NEGATIVE) Urine Urobilinogen (0.2-1.0) mg/dL Ur Leukocyte Esterase (Negative) Armani/uL Urine WBC (Auto) (0-5) /hpf Urine RBC (Auto) (0-3) /hpf Ur Squamous Epith Cells (0-5) /hpf Urine Opiates Screen (NEGATIVE) Urine Methadone Screen (NEGATIVE) Ur Barbiturates Screen (NEGATIVE) Ur Phencyclidine Scrn (NEGATIVE) Ur Amphetamines Screen (NEGATIVE) U Benzodiazepines Scrn (NEGATIVE) U Oth Cocaine Metabols (NEGATIVE) U Cannabinoids Screen (NEGATIVE) 08/03/17 08/03/17 08/03/17 Range/Units 17:49 17:49 17:49 WBC (4.8-10.8) K/uL RBC (4.40-5.90) Mil/uL Hgb (12.0-18.0) g/dL Hct (35.0-51.0) % MCV (80.0-94.0) fL MCH (27.0-31.0) pg MCHC (33.0-37.0) g/dL RDW (11.5-14.5) % Plt Count (130-400) K/uL MPV (7.2-11.7) fL Neut % (Auto) (50.0-75.0) % Lymph % (Auto) (20.0-40.0) % Alexander % (Auto) (0.0-10.0) % Eos % (Auto) (0.0-4.0) % Baso % (Auto) (0.0-2.0) % Neut # (1.8-7.0) K/uL Lymph # (1.0-4.3) K/uL Alexander # (0.0-0.8) K/uL Eos # (0.0-0.7) K/uL Baso # (0.0-0.2) K/uL PT 12.8 H (9.7-12.2) SECONDS INR 1.1 APTT 25 (21-34) SECONDS D-Dimer, Quantitative 859 H (0-243) ng/mlDDU Puncture Site pCO2 (35-45) mm/Hg pO2 (80-100) mm/Hg HCO3 (21-28) mmol/L ABG pH (7.35-7.45) ABG Total CO2 (22-28) mmol/L ABG O2 Saturation (95-98) % ABG Base Excess (-2.0-3.0) mmol/L ABG Hemoglobin (11.7-17.4) g/dL ABG Carboxyhemoglobin (0.5-1.5) % POC ABG HHb (Measured) (0.0-5.0) % ABG Methemoglobin (0.0-3.0) % Gerald Test A-a O2 Difference mm/Hg Respiratory Index Hgb O2 Saturation (95.0-98.0) % Vent Mode Mechanical Rate FiO2 % Tidal Volume PEEP Pressure Support Sodium (132-148) mmol/L Potassium (3.6-5.2) mmol/L Chloride (98-107) mmol/L Carbon Dioxide (22-30) mmol/L Anion Gap (10-20) BUN (9-20) mg/dL Creatinine (0.8-1.5) MG/DL Est GFR ( Amer) Est GFR (Non-Af Amer) Random Glucose (75-110) mg/dL Calcium (8.6-10.4) mg/dl Phosphorus (2.5-4.5) mg/dL Magnesium (1.6-2.3) mg/dL Total Bilirubin (0.2-1.3) mg/dL AST (17-59) U/L ALT (21-72) U/L Alkaline Phosphatase (38-126) U/L Total Protein (6.3-8.3) g/dL Albumin (3.5-5.0) g/dL Globulin (2.2-3.9) gm/dL Albumin/Globulin Ratio (1.0-2.1) Urine Color Yellow (YELLOW) Urine Clarity Clear (Clear) Urine pH 5.0 (5.0-8.0) Ur Specific [place] 1.025 (1.003-1.030) Urine Protein 1+ H (NEGATIVE) mg/dL Urine Glucose (UA) Normal (Normal) mg/dL Urine Ketones Negative (NEGATIVE) mg/dL Urine Blood 3+ H (NEGATIVE) Urine Nitrate Negative (NEGATIVE) Urine Bilirubin Negative (NEGATIVE) Urine Urobilinogen Normal (0.2-1.0) mg/dL Ur Leukocyte Esterase Trace (Negative) Armani/uL Urine WBC (Auto) 4 (0-5) /hpf Urine RBC (Auto) 180 H (0-3) /hpf Ur Squamous Epith Cells < 1 (0-5) /hpf Urine Opiates Screen Negative (NEGATIVE) Urine Methadone Screen Negative (NEGATIVE) Ur Barbiturates Screen Negative (NEGATIVE) Ur Phencyclidine Scrn Negative (NEGATIVE) Ur Amphetamines Screen Negative (NEGATIVE) U Benzodiazepines Scrn Positive (NEGATIVE) U Oth Cocaine Metabols Negative (NEGATIVE) U Cannabinoids Screen Negative (NEGATIVE) Laboratory Results - last 24 hr 08/03/17 08/03/17 08/03/17 17:49 17:49 17:49 WBC RBC Hgb Hct MCV MCH MCHC RDW Plt Count MPV Neut % (Auto) Lymph % (Auto) Alexander % (Auto) Eos % (Auto) Baso % (Auto) Neut # Lymph # Alexander # Eos # Baso # PT 12.8 H INR 1.1 APTT 25 D-Dimer, Quantitative 859 H Puncture Site pCO2 pO2 HCO3 ABG pH ABG Total CO2 ABG O2 Saturation ABG Base Excess ABG Hemoglobin ABG Carboxyhemoglobin POC ABG HHb (Measured) ABG Methemoglobin Gerald Test A-a O2 Difference Respiratory Index Hgb O2 Saturation Vent Mode Mechanical Rate FiO2 Tidal Volume PEEP Pressure Support Sodium Potassium Chloride Carbon Dioxide Anion Gap BUN Creatinine Est GFR ( Amer) Est GFR (Non-Af Amer) Random Glucose Calcium Phosphorus Magnesium Total Bilirubin AST ALT Alkaline Phosphatase Total Protein Albumin Globulin Albumin/Globulin Ratio Urine Color Yellow Urine Clarity Clear Urine pH 5.0 Ur Specific [place] 1.025 Urine Protein 1+ H Urine Glucose (UA) Normal Urine Ketones Negative Urine Blood 3+ H Urine Nitrate Negative Urine Bilirubin Negative Urine Urobilinogen Normal Ur Leukocyte Esterase Trace Urine WBC (Auto) 4 Urine RBC (Auto) 180 H Ur Squamous Epith Cells < 1 Urine Opiates Screen Negative Urine Methadone Screen Negative Ur Barbiturates Screen Negative Ur Phencyclidine Scrn Negative Ur Amphetamines Screen Negative U Benzodiazepines Scrn Positive U Oth Cocaine Metabols Negative U Cannabinoids Screen Negative 08/03/17 08/04/17 08/04/17 19:15 05:33 06:19 WBC 8.4 RBC 4.93 Hgb 13.8 Hct 42.1 MCV 85.4 MCH 28.0 MCHC 32.8 L RDW 13.8 Plt Count 158 MPV 10.6 Neut % (Auto) 86.3 H Lymph % (Auto) 11.6 L Alexander % (Auto) 1.9 Eos % (Auto) 0.1 Baso % (Auto) 0.1 Neut # 7.2 H Lymph # 1.0 Alexander # 0.2 Eos # 0.0 Baso # 0.0 PT INR APTT D-Dimer, Quantitative Puncture Site Rra R rad pCO2 38 36 pO2 150 H 172 H HCO3 26.3 23.8 ABG pH 7.44 7.41 ABG Total CO2 27.0 23.9 ABG O2 Saturation 99.7 H 99.7 H ABG Base Excess 1.7 -1.4 ABG Hemoglobin 14.4 14.4 ABG Carboxyhemoglobin 1.2 1.1 POC ABG HHb (Measured) 0.3 0.3 ABG Methemoglobin 1.0 1.1 Gerald Test Pos Pos A-a O2 Difference 195.0 140.0 Respiratory Index 1.3 0.8 Hgb O2 Saturation 97.5 97.6 Vent Mode A/c Prvc Mechanical Rate 20 20 FiO2 55.0 50.0 Tidal Volume 500 500 PEEP 5 5 Pressure Support Sodium Potassium Chloride Carbon Dioxide Anion Gap BUN Creatinine Est GFR ( Amer) Est GFR (Non-Af Amer) Random Glucose Calcium Phosphorus Magnesium Total Bilirubin AST ALT Alkaline Phosphatase Total Protein Albumin Globulin Albumin/Globulin Ratio Urine Color Urine Clarity Urine pH Ur Specific [place] Urine Protein Urine Glucose (UA) Urine Ketones Urine Blood Urine Nitrate Urine Bilirubin Urine Urobilinogen Ur Leukocyte Esterase Urine WBC (Auto) Urine RBC (Auto) Ur Squamous Epith Cells Urine Opiates Screen Urine Methadone Screen Ur Barbiturates Screen Ur Phencyclidine Scrn Ur Amphetamines Screen U Benzodiazepines Scrn U Oth Cocaine Metabols U Cannabinoids Screen 08/04/17 08/04/17 08/04/17 06:19 12:15 14:28 WBC RBC Hgb Hct MCV MCH MCHC RDW Plt Count MPV Neut % (Auto) Lymph % (Auto) Alexander % (Auto) Eos % (Auto) Baso % (Auto) Neut # Lymph # Alexander # Eos # Baso # PT INR APTT D-Dimer, Quantitative Puncture Site Rr Rrad pCO2 34 L 36 pO2 128 H 130 H HCO3 25.1 24.8 ABG pH 7.45 7.43 ABG Total CO2 24.6 25.0 ABG O2 Saturation 99.2 H 99.5 H ABG Base Excess 0.2 -0.1 ABG Hemoglobin 14.3 14.0 ABG Carboxyhemoglobin 1.0 1.2 POC ABG HHb (Measured) 0.8 0.5 ABG Methemoglobin 1.1 1.2 Gerald Test Po Pos A-a O2 Difference 115.0 110.0 Respiratory Index 0.9 0.8 Hgb O2 Saturation 97.1 97.1 Vent Mode A/c Cpap Mechanical Rate 10 FiO2 40.0 40.0 Tidal Volume 500 PEEP 5 5 Pressure Support 10 Sodium 141 Potassium 3.7 Chloride 105 Carbon Dioxide 20 L Anion Gap 20 BUN 12 Creatinine 0.8 Est GFR ( Amer) > 60 Est GFR (Non-Af Amer) > 60 Random Glucose 116 H Calcium 7.4 L Phosphorus 3.4 Magnesium 2.0 Total Bilirubin 0.7 AST 35 ALT 28 Alkaline Phosphatase 77 Total Protein 6.2 L Albumin 3.1 L D Globulin 3.1 Albumin/Globulin Ratio 1.0 Urine Color Urine Clarity Urine pH Ur Specific [place] Urine Protein Urine Glucose (UA) Urine Ketones Urine Blood Urine Nitrate Urine Bilirubin Urine Urobilinogen Ur Leukocyte Esterase Urine WBC (Auto) Urine RBC (Auto) Ur Squamous Epith Cells Urine Opiates Screen Urine Methadone Screen Ur Barbiturates Screen Ur Phencyclidine Scrn Ur Amphetamines Screen U Benzodiazepines Scrn U Oth Cocaine Metabols U Cannabinoids Screen Review of Systems - Constitutional Constitutional: Weakness. absent: Fever, Chills Additional comments: Unable to evaluate adequate ROS due to intubation - EENT Eyes: absent: Blurred Vision Ears: absent: Dizziness Nose/Mouth/Throat: Dry Mouth, Mouth Pain - Cardiovascular Cardiovascular: absent: Chest Pain - Gastrointestinal Gastrointestinal: absent: Abdominal Pain, Cramping - Neurological Neurological: Weakness. absent: Dizziness, Headaches - Psychiatric Psychiatric: Anxiety - Endocrine Endocrine: Fatigue. absent: Palpitations Critical Care Progress Note - Nutrition Nutrition: Nutrition Category Date Time Status NPO Diet [DIET] Diets 08/03/17 Breakfast Active Assessment/Plan - Assessment and Plan (Free Text) Assessment: 62 year old male with past medical history of COPD admitted for respiratory distress 2/2 asthma exacerbation: -Patient clarified today after extubation that he was never diagnosed with COPD but has a history of asthma Today, (08/04/17): Pressure support was tried and patient was later extuabted and placed on ventrimask Plan: PULM: Respiratory distress 2/2 to possible Asthma exacerbation * Extubated and maintained om Ventrimask * Duonebs 3ML INH RQ6 * Solumedrol 40mg Q12H * Chest X-ray: No acute findings * Continue to monitor ID: Chest CT: Lower lobe bronchial wall thickening, likely infectious or inflammatory in etiology. Avelox 400mg PO daily Prophylaxis: DVT: heparin 5,000 units SC Q12H, SCDs GI: Protonix 40mg IVP daily <Rudolph Tan - Last Filed: 08/04/17 17:43> CCU Objective - Vital Signs / Intake & Output Vital Signs (Last 4 hours): Vital Signs Pulse Resp BP Pulse Ox 08/04/17 17:00 114 H 14 100 08/04/17 16:41 112 H 21 145/85 100 08/04/17 16:00 107 H 15 100 08/04/17 15:42 120 H 23 138/99 H 100 08/04/17 15:00 104 H 18 100 08/04/17 14:41 105 H 15 138/90 100 08/04/17 14:00 99 H 21 100 Intake and Output (Last 8hrs): Intake & Output 08/04/17 08/04/17 08/04/17 06:59 14:59 22:59 Intake Total 1144.4 1192.7 125 Output Total 1050 830 150 Balance 94.4 362.7 -25 Intake: IV 66 70 Intake, IV Amount 1078.4 1022.7 125 Left Forearm 1000 1000 125 Left Wrist 78.4 22.7 Other 100 Output: Urine 1050 830 150 Urethral (Boyd) 1050 830 150 - Medications Active Medications: Active Medications Generic Name Dose Route Start Last Admin Trade Name Freq PRN Reason Stop Dose Admin Albuterol/Ipratropium 3 ml 08/03/17 20:00 08/04/17 08:37 Duoneb 3 Mg/0.5 Mg (3 Ml) Ud INH 3 ml RQ6 RADHA Administration Heparin Sodium (Porcine) 5,000 units 08/03/17 22:00 08/04/17 09:19 Heparin SC 5,000 units Q12 RADHA Administration Sodium Chloride 1,000 mls @ 125 mls/hr 08/03/17 20:00 08/04/17 12:38 Sodium Chloride 0.9% IV 125 mls/hr .Q8H RADHA Administration Methylprednisolone 40 mg 08/03/17 22:00 08/04/17 09:19 Solu-Medrol IV 40 mg Q12 RADHA Administration Moxifloxacin HCl 400 mg 08/03/17 22:00 08/04/17 09:19 Avelox PO 400 mg DAILY RADHA Administration Pantoprazole Sodium 40 mg 08/04/17 10:00 08/04/17 09:19 Protonix Inj IVP 40 mg DAILY RADHA Administration - Patient Studies Lab Studies: Lab Studies 08/04/17 08/04/17 08/04/17 Range/Units 14:28 12:15 06:19 WBC (4.8-10.8) K/uL RBC (4.40-5.90) Mil/uL Hgb (12.0-18.0) g/dL Hct (35.0-51.0) % MCV (80.0-94.0) fL MCH (27.0-31.0) pg MCHC (33.0-37.0) g/dL RDW (11.5-14.5) % Plt Count (130-400) K/uL MPV (7.2-11.7) fL Neut % (Auto) (50.0-75.0) % Lymph % (Auto) (20.0-40.0) % Alexander % (Auto) (0.0-10.0) % Eos % (Auto) (0.0-4.0) % Baso % (Auto) (0.0-2.0) % Neut # (1.8-7.0) K/uL Lymph # (1.0-4.3) K/uL Alexander # (0.0-0.8) K/uL Eos # (0.0-0.7) K/uL Baso # (0.0-0.2) K/uL PT (9.7-12.2) SECONDS INR APTT (21-34) SECONDS D-Dimer, Quantitative (0-243) ng/mlDDU Puncture Site Rrad Rr pCO2 36 34 L (35-45) mm/Hg pO2 130 H 128 H (80-100) mm/Hg HCO3 24.8 25.1 (21-28) mmol/L ABG pH 7.43 7.45 (7.35-7.45) ABG Total CO2 25.0 24.6 (22-28) mmol/L ABG O2 Saturation 99.5 H 99.2 H (95-98) % ABG Base Excess -0.1 0.2 (-2.0-3.0) mmol/L ABG Hemoglobin 14.0 14.3 (11.7-17.4) g/dL ABG Carboxyhemoglobin 1.2 1.0 (0.5-1.5) % POC ABG HHb (Measured) 0.5 0.8 (0.0-5.0) % ABG Methemoglobin 1.2 1.1 (0.0-3.0) % Gerald Test Pos Po A-a O2 Difference 110.0 115.0 mm/Hg Respiratory Index 0.8 0.9 Hgb O2 Saturation 97.1 97.1 (95.0-98.0) % Vent Mode Cpap A/c Mechanical Rate 10 FiO2 40.0 40.0 % Tidal Volume 500 PEEP 5 5 Pressure Support 10 Sodium 141 (132-148) mmol/L Potassium 3.7 (3.6-5.2) mmol/L Chloride 105 (98-107) mmol/L Carbon Dioxide 20 L (22-30) mmol/L Anion Gap 20 (10-20) BUN 12 (9-20) mg/dL Creatinine 0.8 (0.8-1.5) MG/DL Est GFR ( Amer) > 60 Est GFR (Non-Af Amer) > 60 Random Glucose 116 H (75-110) mg/dL Calcium 7.4 L (8.6-10.4) mg/dl Phosphorus 3.4 (2.5-4.5) mg/dL Magnesium 2.0 (1.6-2.3) mg/dL Total Bilirubin 0.7 (0.2-1.3) mg/dL AST 35 (17-59) U/L ALT 28 (21-72) U/L Alkaline Phosphatase 77 (38-126) U/L Total Protein 6.2 L (6.3-8.3) g/dL Albumin 3.1 L D (3.5-5.0) g/dL Globulin 3.1 (2.2-3.9) gm/dL Albumin/Globulin Ratio 1.0 (1.0-2.1) Urine Color (YELLOW) Urine Clarity (Clear) Urine pH (5.0-8.0) Ur Specific [place] (1.003-1.030) Urine Protein (NEGATIVE) mg/dL Urine Glucose (UA) (Normal) mg/dL Urine Ketones (NEGATIVE) mg/dL Urine Blood (NEGATIVE) Urine Nitrate (NEGATIVE) Urine Bilirubin (NEGATIVE) Urine Urobilinogen (0.2-1.0) mg/dL Ur Leukocyte Esterase (Negative) Armani/uL Urine WBC (Auto) (0-5) /hpf Urine RBC (Auto) (0-3) /hpf Ur Squamous Epith Cells (0-5) /hpf Urine Opiates Screen (NEGATIVE) Urine Methadone Screen (NEGATIVE) Ur Barbiturates Screen (NEGATIVE) Ur Phencyclidine Scrn (NEGATIVE) Ur Amphetamines Screen (NEGATIVE) U Benzodiazepines Scrn (NEGATIVE) U Oth Cocaine Metabols (NEGATIVE) U Cannabinoids Screen (NEGATIVE) 08/04/17 08/04/17 08/03/17 Range/Units 06:19 05:33 19:15 WBC 8.4 (4.8-10.8) K/uL RBC 4.93 (4.40-5.90) Mil/uL Hgb 13.8 (12.0-18.0) g/dL Hct 42.1 (35.0-51.0) % MCV 85.4 (80.0-94.0) fL MCH 28.0 (27.0-31.0) pg MCHC 32.8 L (33.0-37.0) g/dL RDW 13.8 (11.5-14.5) % Plt Count 158 (130-400) K/uL MPV 10.6 (7.2-11.7) fL Neut % (Auto) 86.3 H (50.0-75.0) % Lymph % (Auto) 11.6 L (20.0-40.0) % Alexander % (Auto) 1.9 (0.0-10.0) % Eos % (Auto) 0.1 (0.0-4.0) % Baso % (Auto) 0.1 (0.0-2.0) % Neut # 7.2 H (1.8-7.0) K/uL Lymph # 1.0 (1.0-4.3) K/uL Alexander # 0.2 (0.0-0.8) K/uL Eos # 0.0 (0.0-0.7) K/uL Baso # 0.0 (0.0-0.2) K/uL PT (9.7-12.2) SECONDS INR APTT (21-34) SECONDS D-Dimer, Quantitative (0-243) ng/mlDDU Puncture Site R rad Rra pCO2 36 38 (35-45) mm/Hg pO2 172 H 150 H (80-100) mm/Hg HCO3 23.8 26.3 (21-28) mmol/L ABG pH 7.41 7.44 (7.35-7.45) ABG Total CO2 23.9 27.0 (22-28) mmol/L ABG O2 Saturation 99.7 H 99.7 H (95-98) % ABG Base Excess -1.4 1.7 (-2.0-3.0) mmol/L ABG Hemoglobin 14.4 14.4 (11.7-17.4) g/dL ABG Carboxyhemoglobin 1.1 1.2 (0.5-1.5) % POC ABG HHb (Measured) 0.3 0.3 (0.0-5.0) % ABG Methemoglobin 1.1 1.0 (0.0-3.0) % Gerald Test Pos Pos A-a O2 Difference 140.0 195.0 mm/Hg Respiratory Index 0.8 1.3 Hgb O2 Saturation 97.6 97.5 (95.0-98.0) % Vent Mode Prvc A/c Mechanical Rate 20 20 FiO2 50.0 55.0 % Tidal Volume 500 500 PEEP 5 5 Pressure Support Sodium (132-148) mmol/L Potassium (3.6-5.2) mmol/L Chloride (98-107) mmol/L Carbon Dioxide (22-30) mmol/L Anion Gap (10-20) BUN (9-20) mg/dL Creatinine (0.8-1.5) MG/DL Est GFR ( Amer) Est GFR (Non-Af Amer) Random Glucose (75-110) mg/dL Calcium (8.6-10.4) mg/dl Phosphorus (2.5-4.5) mg/dL Magnesium (1.6-2.3) mg/dL Total Bilirubin (0.2-1.3) mg/dL AST (17-59) U/L ALT (21-72) U/L Alkaline Phosphatase (38-126) U/L Total Protein (6.3-8.3) g/dL Albumin (3.5-5.0) g/dL Globulin (2.2-3.9) gm/dL Albumin/Globulin Ratio (1.0-2.1) Urine Color (YELLOW) Urine Clarity (Clear) Urine pH (5.0-8.0) Ur Specific [place] (1.003-1.030) Urine Protein (NEGATIVE) mg/dL Urine Glucose (UA) (Normal) mg/dL Urine Ketones (NEGATIVE) mg/dL Urine Blood (NEGATIVE) Urine Nitrate (NEGATIVE) Urine Bilirubin (NEGATIVE) Urine Urobilinogen (0.2-1.0) mg/dL Ur Leukocyte Esterase (Negative) Armani/uL Urine WBC (Auto) (0-5) /hpf Urine RBC (Auto) (0-3) /hpf Ur Squamous Epith Cells (0-5) /hpf Urine Opiates Screen (NEGATIVE) Urine Methadone Screen (NEGATIVE) Ur Barbiturates Screen (NEGATIVE) Ur Phencyclidine Scrn (NEGATIVE) Ur Amphetamines Screen (NEGATIVE) U Benzodiazepines Scrn (NEGATIVE) U Oth Cocaine Metabols (NEGATIVE) U Cannabinoids Screen (NEGATIVE) 08/03/17 08/03/17 08/03/17 Range/Units 17:49 17:49 17:49 WBC (4.8-10.8) K/uL RBC (4.40-5.90) Mil/uL Hgb (12.0-18.0) g/dL Hct (35.0-51.0) % MCV (80.0-94.0) fL MCH (27.0-31.0) pg MCHC (33.0-37.0) g/dL RDW (11.5-14.5) % Plt Count (130-400) K/uL MPV (7.2-11.7) fL Neut % (Auto) (50.0-75.0) % Lymph % (Auto) (20.0-40.0) % Alexander % (Auto) (0.0-10.0) % Eos % (Auto) (0.0-4.0) % Baso % (Auto) (0.0-2.0) % Neut # (1.8-7.0) K/uL Lymph # (1.0-4.3) K/uL Alexander # (0.0-0.8) K/uL Eos # (0.0-0.7) K/uL Baso # (0.0-0.2) K/uL PT 12.8 H (9.7-12.2) SECONDS INR 1.1 APTT 25 (21-34) SECONDS D-Dimer, Quantitative 859 H (0-243) ng/mlDDU Puncture Site pCO2 (35-45) mm/Hg pO2 (80-100) mm/Hg HCO3 (21-28) mmol/L ABG pH (7.35-7.45) ABG Total CO2 (22-28) mmol/L ABG O2 Saturation (95-98) % ABG Base Excess (-2.0-3.0) mmol/L ABG Hemoglobin (11.7-17.4) g/dL ABG Carboxyhemoglobin (0.5-1.5) % POC ABG HHb (Measured) (0.0-5.0) % ABG Methemoglobin (0.0-3.0) % Gerald Test A-a O2 Difference mm/Hg Respiratory Index Hgb O2 Saturation (95.0-98.0) % Vent Mode Mechanical Rate FiO2 % Tidal Volume PEEP Pressure Support Sodium (132-148) mmol/L Potassium (3.6-5.2) mmol/L Chloride (98-107) mmol/L Carbon Dioxide (22-30) mmol/L Anion Gap (10-20) BUN (9-20) mg/dL Creatinine (0.8-1.5) MG/DL Est GFR ( Amer) Est GFR (Non-Af Amer) Random Glucose (75-110) mg/dL Calcium (8.6-10.4) mg/dl Phosphorus (2.5-4.5) mg/dL Magnesium (1.6-2.3) mg/dL Total Bilirubin (0.2-1.3) mg/dL AST (17-59) U/L ALT (21-72) U/L Alkaline Phosphatase (38-126) U/L Total Protein (6.3-8.3) g/dL Albumin (3.5-5.0) g/dL Globulin (2.2-3.9) gm/dL Albumin/Globulin Ratio (1.0-2.1) Urine Color Yellow (YELLOW) Urine Clarity Clear (Clear) Urine pH 5.0 (5.0-8.0) Ur Specific [place] 1.025 (1.003-1.030) Urine Protein 1+ H (NEGATIVE) mg/dL Urine Glucose (UA) Normal (Normal) mg/dL Urine Ketones Negative (NEGATIVE) mg/dL Urine Blood 3+ H (NEGATIVE) Urine Nitrate Negative (NEGATIVE) Urine Bilirubin Negative (NEGATIVE) Urine Urobilinogen Normal (0.2-1.0) mg/dL Ur Leukocyte Esterase Trace (Negative) Armani/uL Urine WBC (Auto) 4 (0-5) /hpf Urine RBC (Auto) 180 H (0-3) /hpf Ur Squamous Epith Cells < 1 (0-5) /hpf Urine Opiates Screen Negative (NEGATIVE) Urine Methadone Screen Negative (NEGATIVE) Ur Barbiturates Screen Negative (NEGATIVE) Ur Phencyclidine Scrn Negative (NEGATIVE) Ur Amphetamines Screen Negative (NEGATIVE) U Benzodiazepines Scrn Positive (NEGATIVE) U Oth Cocaine Metabols Negative (NEGATIVE) U Cannabinoids Screen Negative (NEGATIVE) Laboratory Results - last 24 hr 08/03/17 08/03/17 08/03/17 17:49 17:49 17:49 WBC RBC Hgb Hct MCV MCH MCHC RDW Plt Count MPV Neut % (Auto) Lymph % (Auto) [place] % (Auto) Eos % (Auto) Baso % (Auto) Neut # Lymph # Alexander # Eos # Baso # PT 12.8 H INR 1.1 APTT 25 D-Dimer, Quantitative 859 H Puncture Site pCO2 pO2 HCO3 ABG pH ABG Total CO2 ABG O2 Saturation ABG Base Excess ABG Hemoglobin ABG Carboxyhemoglobin POC ABG HHb (Measured) ABG Methemoglobin Gerald Test A-a O2 Difference Respiratory Index Hgb O2 Saturation Vent Mode Mechanical Rate FiO2 Tidal Volume PEEP Pressure Support Sodium Potassium Chloride Carbon Dioxide Anion Gap BUN Creatinine Est GFR ( Amer) Est GFR (Non-Af Amer) Random Glucose Calcium Phosphorus Magnesium Total Bilirubin AST ALT Alkaline Phosphatase Total Protein Albumin Globulin Albumin/Globulin Ratio Urine Color Yellow Urine Clarity Clear Urine pH 5.0 Ur Specific [place] 1.025 Urine Protein 1+ H Urine Glucose (UA) Normal Urine Ketones Negative Urine Blood 3+ H Urine Nitrate Negative Urine Bilirubin Negative Urine Urobilinogen Normal Ur Leukocyte Esterase Trace Urine WBC (Auto) 4 Urine RBC (Auto) 180 H Ur Squamous Epith Cells < 1 Urine Opiates Screen Negative Urine Methadone Screen Negative Ur Barbiturates Screen Negative Ur Phencyclidine Scrn Negative Ur Amphetamines Screen Negative U Benzodiazepines Scrn Positive U Oth Cocaine Metabols Negative U Cannabinoids Screen Negative 08/03/17 08/04/17 08/04/17 19:15 05:33 06:19 WBC 8.4 RBC 4.93 Hgb 13.8 Hct 42.1 MCV 85.4 MCH 28.0 MCHC 32.8 L RDW 13.8 Plt Count 158 MPV 10.6 Neut % (Auto) 86.3 H Lymph % (Auto) 11.6 L [place] % (Auto) 1.9 Eos % (Auto) 0.1 Baso % (Auto) 0.1 Neut # 7.2 H Lymph # 1.0 Alexander # 0.2 Eos # 0.0 Baso # 0.0 PT INR APTT D-Dimer, Quantitative Puncture Site Rra R rad pCO2 38 36 pO2 150 H 172 H HCO3 26.3 23.8 ABG pH 7.44 7.41 ABG Total CO2 27.0 23.9 ABG O2 Saturation 99.7 H 99.7 H ABG Base Excess 1.7 -1.4 ABG Hemoglobin 14.4 14.4 ABG Carboxyhemoglobin 1.2 1.1 POC ABG HHb (Measured) 0.3 0.3 ABG Methemoglobin 1.0 1.1 Gerald Test Pos Pos A-a O2 Difference 195.0 140.0 Respiratory Index 1.3 0.8 Hgb O2 Saturation 97.5 97.6 Vent Mode A/c Prvc Mechanical Rate 20 20 FiO2 55.0 50.0 Tidal Volume 500 500 PEEP 5 5 Pressure Support Sodium Potassium Chloride Carbon Dioxide Anion Gap BUN Creatinine Est GFR ( Amer) Est GFR (Non-Af Amer) Random Glucose Calcium Phosphorus Magnesium Total Bilirubin AST ALT Alkaline Phosphatase Total Protein Albumin Globulin Albumin/Globulin Ratio Urine Color Urine Clarity Urine pH Ur Specific [place] Urine Protein Urine Glucose (UA) Urine Ketones Urine Blood Urine Nitrate Urine Bilirubin Urine Urobilinogen Ur Leukocyte Esterase Urine WBC (Auto) Urine RBC (Auto) Ur Squamous Epith Cells Urine Opiates Screen Urine Methadone Screen Ur Barbiturates Screen Ur Phencyclidine Scrn Ur Amphetamines Screen U Benzodiazepines Scrn U Oth Cocaine Metabols U Cannabinoids Screen 08/04/17 08/04/17 08/04/17 06:19 12:15 14:28 WBC RBC Hgb Hct MCV MCH MCHC RDW Plt Count MPV Neut % (Auto) Lymph % (Auto) [place] % (Auto) Eos % (Auto) Baso % (Auto) Neut # Lymph # [place] # Eos # Baso # PT INR APTT D-Dimer, Quantitative Puncture Site Rr Rrad pCO2 34 L 36 pO2 128 H 130 H HCO3 25.1 24.8 ABG pH 7.45 7.43 ABG Total CO2 24.6 25.0 ABG O2 Saturation 99.2 H 99.5 H ABG Base Excess 0.2 -0.1 ABG Hemoglobin 14.3 14.0 ABG Carboxyhemoglobin 1.0 1.2 POC ABG HHb (Measured) 0.8 0.5 ABG Methemoglobin 1.1 1.2 Gerald Test Po Pos A-a O2 Difference 115.0 110.0 Respiratory Index 0.9 0.8 Hgb O2 Saturation 97.1 97.1 Vent Mode A/c Cpap Mechanical Rate 10 FiO2 40.0 40.0 Tidal Volume 500 PEEP 5 5 Pressure Support 10 Sodium 141 Potassium 3.7 Chloride 105 Carbon Dioxide 20 L Anion Gap 20 BUN 12 Creatinine 0.8 Est GFR ( Amer) > 60 Est GFR (Non-Af Amer) > 60 Random Glucose 116 H Calcium 7.4 L Phosphorus 3.4 Magnesium 2.0 Total Bilirubin 0.7 AST 35 ALT 28 Alkaline Phosphatase 77 Total Protein 6.2 L Albumin 3.1 L D Globulin 3.1 Albumin/Globulin Ratio 1.0 Urine Color Urine Clarity Urine pH Ur Specific [place] Urine Protein Urine Glucose (UA) Urine Ketones Urine Blood Urine Nitrate Urine Bilirubin Urine Urobilinogen Ur Leukocyte Esterase Urine WBC (Auto) Urine RBC (Auto) Ur Squamous Epith Cells Urine Opiates Screen Urine Methadone Screen Ur Barbiturates Screen Ur Phencyclidine Scrn Ur Amphetamines Screen U Benzodiazepines Scrn U Oth Cocaine Metabols U Cannabinoids Screen Critical Care Progress Note - Nutrition Nutrition: Nutrition Category Date Time Status NPO Diet [DIET] Diets 08/03/17 Breakfast Active Attending/Attestation - Attestation I have personally seen and examined this patient.: Yes I have fully participated in the care of the patient.: Yes I have reviewed all pertinent clinical information: Yes Notes (Text): 08/04/17 17:41 I have seen and examined the patient. Medical records, lab studies, and imaging were reviewed by me and a management plan was formulated on multidisciplinary rounds with resident Dr. Justice. I agree with their above documented assessment and plan. Patient will not protect her airway shelter, she is at high risk for eventual aspiration and possible intubation. Palliative care consulted and started conversation about shelter goals of care. Eliquis for stroke prophylaxis from Afib. Stable for downgrade to the floors. Critical Care Time 35 minutes. Multi-disciplinary rounds were performed with house staff, nursing, speech therapy, respiratory therapy, pharmacy and nutrition with integrated input from the primary team/attending and other consulting services. The documented time is cumulative and includes review of patient data/exams/labs/chart review and examination of the patient on rounds and throughout the day; time is exclusive of any procedures or teaching time.
--- NOTE | 2017-08-04 19:41 | PN ---
DATE: 08/04/2017 SUBJECTIVE: The patient is seen and evaluated at bedside. Events from overnight noted. The patient remains intubated, awake,on CPAP, responding appropriately to questions by nodding his head. Claiming that he is uncomfortable with tube in his neck. Denies any complaints. PHYSICAL EXAMINATION: GENERAL: Middle-aged male in no acute distress, lying in bed. VITAL SIGNS: Blood pressure 138/90, pulse 99, respirations 15 and temperature 98.4 Fahrenheit. O2 sat is 100% on 40% FiO2, on CPAP. Intake is 1611 and output is 1365. HEENT: Pupils equal, round, reacting to light and accommodation. Extraocular movements intact. No icterus. No pallor. NECK: Supple. No JVD. ET tube in the oral cavity. CARDIOVASCULAR: S1 and S2 present, regular. LUNGS: Bilateral vesicular breath sounds. No wheezing. No rhonchi. ABDOMEN: Soft and nontender. Bowel sound is present. No guarding. No rigidity. No rebound tenderness noted. CENTRAL NERVOUS SYSTEM: Alert, awake, oriented x3. No focal deficits noted. EXTREMITIES: No edema. LABORATORY DATA: WBC 8.4, hemoglobin 13.8, hematocrit 42.1 and platelets 158. ABG on CPAP: 40% FiO2, pCO2 is 36, pO2 is 130 and O2 sat is 99%. Sodium 141, potassium 3.7, chloride 105, bicarbonate 20, BUN 12, creatinine 0.8, glucose 116, calcium 7.4, phosphorus 3.4, magnesium 2.0, AST 35, ALT 28, alkaline phosphatase 77, total protein 6.2, and albumin 3.1. UA: Specific gravity 1.025, pH 5.0, blood 3+, and rbc's 180. Urine drug screen positive for benzodiazepine. CT of the chest is negative for any PE. CT of head is negative. CT of the chest is consistent with left lower lobe atelectasis, superimposed pneumonia is not excluded. Follow after resolution to exclude underlying pathology, lower lobe bronchial wall thickening, reticular nodular opacities, nonspecific pulmonary nodules. MEDICATIONS: Include DuoNeb, Solu-Medrol 40 mg IV q.12 hours, Avelox 400 mg daily, Protonix 40 mg daily and IV fluids 125 mL q.8 hours. ASSESSMENT AND PLAN: A middle-aged male with past medical history of chronic obstructive pulmonary disease, hypertension, admitted for acute respiratory failure, status post intubation, abnormal CT of chest, PE ruled out, on CPAP. Continue to monitor the patient's respiratory status; if tolerates, CPAP for possible extubation later today. Continue with nebulizer treatment. Continue with Avelox. Monitor blood pressure closely. Continue with steroids. DVT and GI prophylaxis as ordered. I will obtain pulmonary evaluation. Discussed with the patient's daughter who is at bedside. We will add further recommendation as his clinical course progresses. Leonela Manzo MD
[2017-08-05] MEDS: Albuterol-Ipratrop 3 mg / 0.5 (3 ml) UD INH SCH ×4 (02:03→22:34)
[2017-08-05] MEDS: Sodium Chloride 0.9% 1,000 ML IV SCH ×2 (05:21→14:28)
[2017-08-05 06:36] LABS: BASO % 0.1 % (0.0-2.0); LYMPH # 1.3 K/uL (1.0-4.3); LYMPH % 14.3 % (20.0-40.0); MEAN CELL VOLUME 85.2 fL (80.0-94.0); MEAN CORPUSCULAR HEMOGLOBIN 28.3 pg (27.0-31.0); MEAN CORPUSCULAR HGB CONC 33.2 g/dL (33.0-37.0); MEAN PLATELET VOLUME 10.6 fL (7.2-11.7); MONO # 0.4 K/uL (0.0-0.8); MONO % 4.7 % (0.0-10.0); NRBC % 0.1 % (0.0-2.0)
[2017-08-05 06:54] LABS: CHLORIDE 107 mmol/L (98-107)
[2017-08-05 06:55] LABS: POTASSIUM 4.8 mmol/L (3.6-5.2); SODIUM 138 mmol/L (132-148)
[2017-08-05 06:57] LABS: ALKALINE PHOSPHATASE 65 U/L (38-126); ALT/SGPT 32 U/L (21-72); AST/SGOT 39 U/L (17-59); BILIRUBIN,TOTAL 0.7 mg/dL (0.2-1.3); BLOOD UREA NITROGEN 14 mg/dL (9-20); CARBON DIOXIDE 21 mmol/L (22-30); GFR AFRICAN-AMERICAN > 60; GLUCOSE,RANDOM 105 mg/dL (75-110); TOTAL PROTEIN 6.1 g/dL (6.3-8.3)
[2017-08-05 06:58] LABS: CALCIUM 8.2 mg/dl (8.6-10.4); MAGNESIUM 2.3 mg/dL (1.6-2.3); PHOSPHOROUS 3.8 mg/dL (2.5-4.5)
[2017-08-05] MEDS: MethylPREDNISolone 40 mg Vial IV SCH ×2 (09:19→22:49)
--- NOTE | 2017-08-05 14:25 | CP.PCM.PN ---
Subjective - Date & Time of Evaluation Date of Evaluation: 08/05/17 Time of Evaluation: 14:25 - Subjective Subjective: Progress note dictated #[id number] Objective - Vital Signs/Intake and Output Vital Signs (last 24 hours): Temp Pulse Resp BP Pulse Ox 97.8 F 89 16 137/71 100 08/05/17 12:00 08/05/17 14:00 08/05/17 14:00 08/05/17 11:41 08/05/17 14:00 Intake and Output: 08/05/17 08/05/17 06:59 18:59 Intake Total 1375 1550 Output Total 1200 750 Balance 175 800 - Medications Medications: Current Medications Albuterol/Ipratropium (Duoneb 3 Mg/0.5 Mg (3 Ml) Ud) 3 ml INH RQ6 [facility] Last Admin: 08/05/17 13:16 Dose: 3 ml Budesonide (Pulmicort Respules) 1 mg INH DAILY [facility] Heparin Sodium (Porcine) (Heparin) 5,000 units SC Q12 [facility] Last Admin: 08/05/17 09:19 Dose: 5,000 units Methylprednisolone (Solu-Medrol) 40 mg IV Q12 [facility] Last Admin: 08/05/17 09:19 Dose: 40 mg Moxifloxacin HCl (Avelox) 400 mg PO DAILY [facility] Last Admin: 08/05/17 09:19 Dose: 400 mg Pantoprazole Sodium (Protonix Inj) 40 mg IVP DAILY [facility] Last Admin: 08/05/17 09:19 Dose: 40 mg Prednisone (Prednisone Tab) 20 mg PO DAILY [facility] Stop: 08/08/17 10:01 Prednisone (Prednisone Tab) 10 mg PO DAILY [facility] Stop: 08/10/17 10:01 Prednisone (Prednisone Tab) 5 mg PO DAILY [facility] Stop: 08/12/17 10:01 - Labs Labs: 08/05/17 06:33 08/05/17 06:33 PT 12.8 SECONDS (9.7-12.2) H 08/03/17 17:49 INR 1.1 08/03/17 17:49 APTT 25 SECONDS (21-34) 08/03/17 17:49
[2017-08-05 15:59] VITALS: RESP 20
--- NOTE | 2017-08-05 18:59 | CP.CCUPN ---
CCU Subjective - Physician Review Events Since Last Encounter (Free Text): 08/05/17 18:56 spoke with son, Eliceo Garza at great length and detail. Witnessed by Dr. Justice. He understands his mother is very ill. I explained to him her recovery is unpredictable. He does not want her to suffer, so it was agreed that she will be made DNR/DNI. He is hoping to have a followup conversation with our palliative care service, Nurse Practition[facility] [place], for home hospice options. CCU Objective - Vital Signs / Intake & Output Vital Signs (Last 4 hours): Vital Signs Temp Pulse Resp BP Pulse Ox 08/05/17 15:57 97.4 F L 82 20 167/74 H 96 Intake and Output (Last 8hrs): Intake & Output 08/05/17 08/05/17 08/05/17 06:59 14:59 22:59 Intake Total 1000 1550 Output Total 1200 750 Balance -200 800 Intake: Intake, IV Amount 1000 750 Left Forearm 1000 750 Oral 800 Output: Urine 1200 750 Urethral (Boyd) 1200 750 - Physical Exam Head: Positive for: Atraumatic, Normocephalic Extroacular Muscles: Positive for: EOMI Respiratory/Chest: Positive for: Clear to Auscultation. Negative for: Respiratory Distress, Accessory Muscle Use Cardiovascular: Positive for: Regular Rate and Rhythm, Normal S1, S2 Abdomen: Positive for: Normal Bowel Sounds. Negative for: Tenderness, Distention, Rebound Upper Extremity: Positive for: Normal Inspection. Negative for: Edema Lower Extremity: Positive for: Normal Inspection. Negative for: Edema Neurological: Positive for: GCS=15 Skin: Positive for: Warm, Normal Color Psychiatric: Positive for: Alert, Oriented x 3 - Medications Active Medications: Active Medications Generic Name Dose Route Start Last Admin Trade Name Freq PRN Reason Stop Dose Admin Albuterol/Ipratropium 3 ml 08/03/17 20:00 08/05/17 13:16 Duoneb 3 Mg/0.5 Mg (3 Ml) Ud INH 3 ml RQ6 [facility] Administration Budesonide 1 mg 08/12/17 10:00 Pulmicort Respules INH DAILY [facility] Heparin Sodium (Porcine) 5,000 units 08/03/17 22:00 08/05/17 09:19 Heparin SC 5,000 units Q12 [facility] Administration Methylprednisolone 40 mg 08/03/17 22:00 08/05/17 09:19 Solu-Medrol IV 40 mg Q12 [facility] Administration Moxifloxacin HCl 400 mg 08/03/17 22:00 08/05/17 09:19 Avelox PO 400 mg DAILY [facility] Administration Pantoprazole Sodium 40 mg 08/04/17 10:00 08/05/17 09:19 Protonix Inj IVP 40 mg DAILY [facility] Administration Prednisone 20 mg 08/06/17 10:00 Prednisone Tab PO 08/08/17 10:01 DAILY [facility] Prednisone 10 mg 08/08/17 10:00 Prednisone Tab PO 08/10/17 10:01 DAILY [facility] Prednisone 5 mg 08/10/17 10:00 Prednisone Tab PO 08/12/17 10:01 DAILY [facility] - Patient Studies Lab Studies: Microbiology Studies 08/03/17 16:47 MRSA Culture (Admit) - Final Naris MRSA NOT DETECTED Lab Studies 08/05/17 08/05/17 08/05/17 Range/Units 12:19 06:33 06:33 WBC 9.0 (4.8-10.8) K/uL RBC 4.58 (4.40-5.90) Mil/uL Hgb 13.0 (12.0-18.0) g/dL Hct 39.0 (35.0-51.0) % MCV 85.2 (80.0-94.0) fL MCH 28.3 (27.0-31.0) pg MCHC 33.2 (33.0-37.0) g/dL RDW 14.0 (11.5-14.5) % Plt Count 129 L D (130-400) K/uL MPV 10.6 (7.2-11.7) fL Neut % (Auto) 80.9 H (50.0-75.0) % Lymph % (Auto) 14.3 L (20.0-40.0) % [place] % (Auto) 4.7 (0.0-10.0) % Eos % (Auto) 0.0 (0.0-4.0) % Baso % (Auto) 0.1 (0.0-2.0) % Neut # 7.3 H (1.8-7.0) K/uL Lymph # 1.3 (1.0-4.3) K/uL [place] # 0.4 (0.0-0.8) K/uL Eos # 0.0 (0.0-0.7) K/uL Baso # 0.0 (0.0-0.2) K/uL Differential Comment Sodium 138 (132-148) mmol/L Potassium 4.8 (3.6-5.2) mmol/L Chloride 107 (98-107) mmol/L Carbon Dioxide 21 L (22-30) mmol/L Anion Gap 14 (10-20) BUN 14 (9-20) mg/dL Creatinine 0.8 (0.8-1.5) MG/DL Est GFR ( Amer) > 60 Est GFR (Non-Af Amer) > 60 Random Glucose 105 (75-110) mg/dL Calcium 8.2 L (8.6-10.4) mg/dl Phosphorus 3.8 (2.5-4.5) mg/dL Magnesium 2.3 (1.6-2.3) mg/dL Total Bilirubin 0.7 (0.2-1.3) mg/dL AST 39 (17-59) U/L ALT 32 (21-72) U/L Alkaline Phosphatase 65 (38-126) U/L Total Protein 6.1 L (6.3-8.3) g/dL Albumin 3.0 L (3.5-5.0) g/dL Globulin 3.0 (2.2-3.9) gm/dL Albumin/Globulin Ratio 1.0 (1.0-2.1) HIV 1&2 Antibody Screen Reactive (NEGATIVE) Laboratory Results - last 24 hr 08/05/17 08/05/17 08/05/17 06:33 06:33 12:19 WBC 9.0 RBC 4.58 Hgb 13.0 Hct 39.0 MCV 85.2 MCH 28.3 MCHC 33.2 RDW 14.0 Plt Count 129 L D MPV 10.6 Neut % (Auto) 80.9 H Lymph % (Auto) 14.3 L [place] % (Auto) 4.7 Eos % (Auto) 0.0 Baso % (Auto) 0.1 Neut # 7.3 H Lymph # 1.3 [place] # 0.4 Eos # 0.0 Baso # 0.0 Differential Comment Sodium 138 Potassium 4.8 Chloride 107 Carbon Dioxide 21 L Anion Gap 14 BUN 14 Creatinine 0.8 Est GFR ( Amer) > 60 Est GFR (Non-Af Amer) > 60 Random Glucose 105 Calcium 8.2 L Phosphorus 3.8 Magnesium 2.3 Total Bilirubin 0.7 AST 39 ALT 32 Alkaline Phosphatase 65 Total Protein 6.1 L Albumin 3.0 L Globulin 3.0 Albumin/Globulin Ratio 1.0 HIV 1&2 Antibody Screen Reactive Critical Care Progress Note - Nutrition Nutrition: Nutrition Category Date Time Status Regular Diet [DIET] Diets 08/04/17 Dinner Active
[2017-08-05] MEDS ORDERED: (Novolog) Insulin Aspart, Recombinant 100 u/ml 10 ml vial SC SCH (19:15)
--- NOTE | 2017-08-05 22:02 | CP.PCM.CON ---
History of Present Illness - History of Present Illness History of Present Illness: Chief complaint: Respiratory arrest History of present illness: 62-year-old male with history of COPD and asthma brought into the emergency room because of the severe shortness of breath. He was driving, suddenly called 911 when he was driving, and in the field that was unsuccessful intubation, patient was given Solu-Medrol terbutaline and magnesium, brought him to the emergency room. In the emergency room patient was intubated. And was admitted to the intensive care unit. Patient was having poor ER entry in the lungs at that time. Past medical history: History of pneumonia hypertension and asthma. Surgical history none Social history nonsmoker used to be an alcoholic in the past. Allergies no known drug allergy Personal history lives with a girlfriend. Family history significant for premature Hospital medications reviewed in Review of system: Patient is awake and responding at this time. He got extubated from the intensive care unit, and also was transferred to the floor. Clinically he is feeling much better. No chest pain. No shortness of breath On examination: Vital signs reviewed Chest good air entry bilaterally regular heart sounds nontender abdomen [employer] oriented 3 no functional neurological deficit Assessment and recommendation: 62-year-old male with a history of COPD, asthma admitted to the hospital with acute respiratory insufficiency hypoxic. Intubated, extubated. Currently he is on antibiotic for possible suspected pneumonia. Continue the IV antibiotic at this time. We'll follow the patient Past Patient History - Past Medical History & Family History Past Medical History?: Yes - Past Social History Smoking Status: Unknown If Ever Smoked - CARDIAC Hx Cardiac Disorders: Yes Hx Hypertension: Yes - PULMONARY Hx Respiratory Disorders: Yes Hx Asthma: Yes Hx Chronic Obstructive Pulmonary Disease (COPD): Yes Hx Pneumonia: Yes - NEUROLOGICAL Hx Neurological Disorder: No - HEENT Hx HEENT Problems: No - RENAL Hx Chronic Kidney Disease: No - ENDOCRINE/METABOLIC Hx Endocrine Disorders: No - HEMATOLOGICAL/ONCOLOGICAL Hx Blood Disorders: No - INTEGUMENTARY Hx Dermatological Problems: No - MUSCULOSKELETAL/RHEUMATOLOGICAL Hx Musculoskeletal Disorders: No Hx Falls: No - GASTROINTESTINAL Hx Gastrointestinal Disorders: No - GENITOURINARY/GYNECOLOGICAL Hx Genitourinary Disorders: No - PSYCHIATRIC Hx Psychophysiologic Disorder: No Hx Substance Use: No - SURGICAL HISTORY Hx Surgeries: No - ANESTHESIA Hx Anesthesia: No Hx Anesthesia Reactions: No Hx Malignant Hyperthermia: No Meds Home Medications: Home Medication List Medication Instructions Recorded Confirmed Type Moxifloxacin [Avelox] 400 mg PO DAILY #5 tab 08/08/17 Rx Allergies/Adverse Reactions: Allergies Allergy/AdvReac Type Severity Reaction Status Date / Time acetaminophen [From Tylenol] Allergy SWELLING Verified 08/05/17 09:54 ibuprofen [From Advil] Allergy SWELLING Verified 08/05/17 09:54 - Medications Medications: Current Medications Albuterol/Ipratropium (Duoneb 3 Mg/0.5 Mg (3 Ml) Ud) 3 ml INH RQ6 [facility] Last Admin: 08/05/17 13:16 Dose: 3 ml Budesonide (Pulmicort Respules) 1 mg INH DAILY [facility] Heparin Sodium (Porcine) (Heparin) 5,000 units SC Q12 [facility] Last Admin: 08/05/17 09:19 Dose: 5,000 units Insulin Aspart (Novolog) 0 unit SC Q6 [facility] PRN Reason: Protocol Last Admin: 08/05/17 19:48 Dose: Not Given Methylprednisolone (Solu-Medrol) 40 mg IV Q12 [facility] Last Admin: 08/05/17 09:19 Dose: 40 mg Moxifloxacin HCl (Avelox) 400 mg PO DAILY [facility] Last Admin: 08/05/17 09:19 Dose: 400 mg Pantoprazole Sodium (Protonix Inj) 40 mg IVP DAILY [facility] Last Admin: 08/05/17 09:19 Dose: 40 mg Prednisone (Prednisone Tab) 20 mg PO DAILY [facility] Stop: 08/08/17 10:01 Prednisone (Prednisone Tab) 10 mg PO DAILY [facility] Stop: 08/10/17 10:01 Prednisone (Prednisone Tab) 5 mg PO DAILY [facility] Stop: 08/12/17 10:01 Results - Vital Signs Recent Vital Signs: Last Vital Signs Temp 97.4 F L 08/05/17 15:57 Pulse 82 08/05/17 15:57 Resp 20 08/05/17 15:57 BP 167/74 H 08/05/17 15:57 Pulse Ox 96 08/05/17 15:57 - Labs Result Diagrams: 08/08/17 08:02 08/08/17 08:02 Labs: Laboratory Results - last 24 hr 08/05/17 08/05/17 08/05/17 06:33 06:33 12:19 WBC 9.0 RBC 4.58 Hgb 13.0 Hct 39.0 MCV 85.2 MCH 28.3 MCHC 33.2 RDW 14.0 Plt Count 129 L D MPV 10.6 Neut % (Auto) 80.9 H Lymph % (Auto) 14.3 L [place] % (Auto) 4.7 Eos % (Auto) 0.0 Baso % (Auto) 0.1 Neut # 7.3 H Lymph # 1.3 [place] # 0.4 Eos # 0.0 Baso # 0.0 Differential Comment Sodium 138 Potassium 4.8 Chloride 107 Carbon Dioxide 21 L Anion Gap 14 BUN 14 Creatinine 0.8 Est GFR ( Amer) > 60 Est GFR (Non-Af Amer) > 60 POC Glucose (mg/dL) Random Glucose 105 Calcium 8.2 L Phosphorus 3.8 Magnesium 2.3 Total Bilirubin 0.7 AST 39 ALT 32 Alkaline Phosphatase 65 Total Protein 6.1 L Albumin 3.0 L Globulin 3.0 Albumin/Globulin Ratio 1.0 HIV 1&2 Antibody Screen Reactive 08/05/17 19:45 WBC RBC Hgb Hct MCV MCH MCHC RDW Plt Count MPV Neut % (Auto) Lymph % (Auto) [place] % (Auto) Eos % (Auto) Baso % (Auto) Neut # Lymph # [place] # Eos # Baso # Differential Comment Sodium Potassium Chloride Carbon Dioxide Anion Gap BUN Creatinine Est GFR ( Amer) Est GFR (Non-Af Amer) POC Glucose (mg/dL) 126 H Random Glucose Calcium Phosphorus Magnesium Total Bilirubin AST ALT Alkaline Phosphatase Total Protein Albumin Globulin Albumin/Globulin Ratio HIV 1&2 Antibody Screen
--- NOTE | 2017-08-06 00:55 | PN ---
DATE: 08/05/2017 SUBJECTIVE: The patient was seen and examined at bedside. Events from yesterday noted. The patient was extubated, has been able to maintain oxygenation via nasal cannula. Denies any headache or dizziness. Denies any chest pain, but complains of throat and chest discomfort. Denies any other complaints. PHYSICAL EXAMINATION: GENERAL: Middle-aged male, lying in bed, in no acute distress. VITAL SIGNS: Blood pressure 167/74, pulse 82, respiration 20, temperature 97.4 degree Fahrenheit. O2 sat is 96% on 3 liters nasal cannula. HEENT: Pupils equal, round and reacting to light and accommodation. Extraocular muscles intact. No icterus. No pallor. No rubs. No thrush. No pharyngeal congestion. NECK: Supple. No JVD. No thyromegaly. CHEST: Moving equally bilaterally on respiration. LUNGS: Bilateral vesicular breath sounds. No wheezing. No rhonchi. CARDIOVASCULAR SYSTEM: S1 and S2 present, regular. ABDOMEN: Soft and nontender. Bowel sounds present. No guarding. No rigidity. No rebound tenderness noted. CENTRAL NERVOUS SYSTEM: Alert, awake, oriented x3. No focal deficits noted. EXTREMITIES: No edema. MEDICATIONS: Include DuoNeb; Pulmicort; Solu-Medrol 40 mg IV q. 12 hours; Avelox 400 mg daily; Protonix 40 mg IV push daily; prednisone 20 mg p.o daily for 2 days, 10 mg daily for 2 days and 5 mg daily for 2 days. LABORATORY DATA: From this morning, WBC 9.0, hemoglobin 13, hematocrit 39.0, platelets 129. Sodium 138, potassium 4.8, chloride 107, bicarbonate 21, BUN 14, creatinine 0.8, glucose 105, calcium 8.2, phosphorus 3.8, magnesium 2.3. Total bilirubin 0.7. AST 39, ALT 32, alkaline phosphatase 65, total protein 6.1, and albumin 3.0. HIV 1 and 2 reactive. ASSESSMENT AND PLAN: Middle-aged male with a history of asthma, human immunodeficiency virus positive, who has been on medication since last year, admitted for asthma exacerbation and acute respiratory failure, status post acute extubation, tolerating nasal cannula. Continue with current medications. Blood pressure is slightly high. Monitor blood pressure and start him on antihypertensives as persistently high. Continue with nebulizer treatments and steroids. We will obtain pulmonary evaluation. Advised the patient to bring the medication list from home so that we can restart him on his home medication and antiretroviral therapy. Leonela Manzo MD
[2017-08-06] MEDS: Albuterol-Ipratrop 3 mg / 0.5 (3 ml) UD INH SCH ×4 (01:34→19:49)
[2017-08-06 09:22] LABS: % CD16+CD56+(NK CELL) 15 Percent (4-25); % CD19 (B CELL) 31 Percent (6-29); % CD3 (MATURE T CELL) 53 Percent (57-85); ABSOLUTE CD16+CD56+CELLS 197 Cells/mcL (70-760)
--- NOTE | 2017-08-06 18:25 | CP.PCM.PN ---
Subjective - Date & Time of Evaluation Date of Evaluation: 08/06/17 Time of Evaluation: 18:24 - Subjective Subjective: pt is seen and examined, progress note is dictated for dr. st Objective - Vital Signs/Intake and Output Vital Signs (last 24 hours): Temp Pulse Resp BP Pulse Ox 97.8 F 71 20 154/81 H 98 08/06/17 16:04 08/06/17 16:04 08/06/17 16:04 08/06/17 16:04 08/06/17 16:04 Intake and Output: 08/06/17 08/06/17 06:59 18:59 Intake Total 440 480 Output Total 550 600 Balance -110 -120 - Medications Medications: Current Medications Albuterol/Ipratropium (Duoneb 3 Mg/0.5 Mg (3 Ml) Ud) 3 ml INH RQ6 [facility] Last Admin: 08/06/17 13:16 Dose: 3 ml Amlodipine Besylate (Norvasc) 2.5 mg PO DAILY [facility] Last Admin: 08/06/17 09:29 Dose: 2.5 mg Budesonide (Pulmicort Respules) 1 mg INH DAILY [facility] Heparin Sodium (Porcine) (Heparin) 5,000 units SC Q12 [facility] Last Admin: 08/06/17 09:29 Dose: 5,000 units Moxifloxacin HCl (Avelox) 400 mg PO DAILY [facility] Last Admin: 08/06/17 09:29 Dose: 400 mg Pantoprazole Sodium (Protonix Inj) 40 mg IVP DAILY [facility] Last Admin: 08/06/17 09:29 Dose: 40 mg Prednisone (Prednisone Tab) 20 mg PO DAILY [facility] Stop: 08/08/17 10:01 Last Admin: 08/06/17 09:29 Dose: 20 mg Prednisone (Prednisone Tab) 10 mg PO DAILY [facility] Stop: 08/10/17 10:01 Prednisone (Prednisone Tab) 5 mg PO DAILY [facility] Stop: 08/12/17 10:01 - Labs Labs: 08/05/17 06:33 08/05/17 06:33 PT 12.8 SECONDS (9.7-12.2) H 08/03/17 17:49 INR 1.1 08/03/17 17:49 APTT 25 SECONDS (21-34) 08/03/17 17:49
[2017-08-07] MEDS: Albuterol-Ipratrop 3 mg / 0.5 (3 ml) UD INH SCH ×4 (01:59→19:44)
--- NOTE | 2017-08-07 02:27 | PN ---
DATE: The patient is located in room 365, bed 8. The patient seen and examined. HISTORY OF PRESENT ILLNESS: Mr. 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 As per the patient, he took four medications. After taking the medication, he started having shortness of breath and cough and unable to breathe. He called himself 911. Attempted intubation in the field by EMS was unsuccessful. The patient was brought to the emergency room and intubated in the emergency room admitted to the ICU. Subsequently, extubated and transferred back to medical floor last night. The patient is not in acute distress. No headache or dizziness. Denies any chest pain or palpitation. Denies any fever, cough. No abdominal pain. No nausea, vomiting, diarrhea. No fever, cough. PHYSICAL EXAMINATION: GENERAL: Mr. Garza is a 62 years old male, moderately built, moderately nourished, not in acute distress. VITAL SIGNS: Blood pressure 154/81, pulse 71, respiration 20, temperature 97.8, saturation 98%. Height is 5 feet and 7 inches and weight is 257 pounds. HEENT: Pupils are normal and reactive to light and accommodation. Conjunctivae pink. Sclerae anicteric. Tongue is moist. Trachea is midline. LUNGS: Symmetrical on both sides. Bilateral breath sounds present. No crackles. CVS: [place] at the fifth intercostal space, midclavicular line. S1 and S2 audible. No murmur, no gallop. ABDOMEN: Normal in appearance. Soft and tympanic. No guarding, no rigidity. No hepatosplenomegaly. SEWER CONNECTOR: The patient is alert, awake, oriented x3. Nonfocal neuro examination. Cranial nerves II through XII grossly intact. Sensory and motor system is within normal limits. EXTREMITIES: No cyanosis, no clubbing, no edema. CURRENT MEDICATIONS: Include as follows: moxifloxacin 400 mg p.o. daily, DuoNeb inhaler, subcu heparin 5000 q. 12 hours, amlodipine 2.5 mg daily, prednisone 20 mg p.o. daily at 9:30 and 10 mg for 2 days and 5 mg for 2 days, Protonix 40 mg daily and Pulmicort 1 mg inhaler daily. LABORATORY DATA: His laboratory data as of 08/05/2017, WBC 9, hemoglobin 13, hematocrit is 39 and platelets 129. As of 08/05/2017, Sodium 138, potassium 4.8, chloride 107, CO2 21, BUN 14, creatinine 0.8, glucose 105, calcium 8.2, phosphorus 3.8, magnesium 2.3, total bilirubin 0.7, AST 39, ALT 32, alkaline phosphatase 65, total protein 6.1, albumin is 3.0. CT of the chest as of 08/03/2017, no CT evidence of pulmonary embolism, left lower lobe atelectasis, superimposed pneumonia is not excluded, follow up resolution to exclude, underlying pathology, lower lobe bronchial wall thickening, non likely infectious or inflammatory in etiology, reticular nodular opacities, nonspecific inflammatory infections or neoplastic etiology. Follow up to resolution. Pulmonary nodules, follow up nodules. For low risk patient's, no followup is necessary. For high risk patients, smoking history and other known risk factors, an optimal CT at 12 months could be performed. Incidental nonacute findings. Chest x-ray as of 08/04/2017, nonsignificant interval changes since the previous exam by appropriate position of the supportive devices. Lungs, no significant interval changes in the lungs since the previous exam. Questionable left retrocardiac airspace opacity noted. ET tube is seen at the appropriate position. In summary, Mr. Garza is a 62 years old elderly male with a history of hypertension, HIV positive, asthma, was feeling shortness of breath after taking a new medication prescribed by physicians in [facility] for HIV and complaining of cough and shortness of breath and called 911 and intubated in the emergency room, after unsuccessful intubation in the field. 1. Status post acute respiratory failure secondary to acute asthmatic attack, cannot rule out secondary to allergic reaction to the medication. 2. Hypertension, continue Norvasc 2.5 mg, low sodium diet. 3. HIV positive. We will check rapid HIV antibody screening and also get T cell count. Continue IV antibiotics Avelox as per ID. See recommendation. We will also request pulmonary consult with Dr. Buenrostro. The patient is seen and examined. Dov Manzo MD
--- NOTE | 2017-08-07 18:06 | CP.PCM.PN ---
Subjective - Date & Time of Evaluation Date of Evaluation: 08/07/17 Time of Evaluation: 18:05 - Subjective Subjective: pt is seen and examined,progress note is dictated for Dr. Mcarthur# [id number] Objective - Vital Signs/Intake and Output Vital Signs (last 24 hours): Temp Pulse Resp BP Pulse Ox 98.8 F 94 H 20 173/85 H 97 08/07/17 15:00 08/07/17 15:00 08/07/17 15:00 08/07/17 15:00 08/07/17 15:00 Intake and Output: 08/07/17 08/07/17 06:59 18:59 Intake Total 240 500 Output Total 500 Balance -260 500 - Medications Medications: Current Medications Albuterol/Ipratropium (Duoneb 3 Mg/0.5 Mg (3 Ml) Ud) 3 ml INH RQ6 [facility] Last Admin: 08/07/17 13:19 Dose: 3 ml Amlodipine Besylate (Norvasc) 2.5 mg PO DAILY [facility] Last Admin: 08/07/17 09:19 Dose: 2.5 mg Budesonide (Pulmicort Respules) 1 mg INH DAILY [facility] Moxifloxacin HCl (Avelox) 400 mg PO DAILY [facility] Last Admin: 08/07/17 09:19 Dose: 400 mg Pantoprazole Sodium (Protonix Inj) 40 mg IVP DAILY [facility] Last Admin: 08/07/17 09:20 Dose: 40 mg Prednisone (Prednisone Tab) 20 mg PO DAILY [facility] Stop: 08/08/17 10:01 Last Admin: 08/07/17 09:19 Dose: 20 mg Prednisone (Prednisone Tab) 10 mg PO DAILY [facility] Stop: 08/10/17 10:01 Prednisone (Prednisone Tab) 5 mg PO DAILY [facility] Stop: 08/12/17 10:01 - Labs Labs: 08/05/17 06:33 08/05/17 06:33 PT 12.8 SECONDS (9.7-12.2) H 08/03/17 17:49 INR 1.1 08/03/17 17:49 APTT 25 SECONDS (21-34) 08/03/17 17:49
--- NOTE | 2017-08-07 23:11 | PN ---
DATE: The patient is located in room 365, bed A. The patient is seen and examined. HISTORY OF PRESENT ILLNESS: Mr. Garza is a 62 years old elderly obese male with a past medical history significant for hypertension, HIV positive, and questionable asthma. ALLERGIC TO TYLENOL AND IBUPROFEN. He was recently started on a fourth antiretroviral medication as per the patient from the [facility]. The patient took the medicine on the day of admission and suddenly he felt short of breath and coughing. He called 911. EMS came in and tried to intubate the patient in the field twice, unsuccessful. Subsequently, the patient was brought to the emergency room and intubated for acute respiratory failure. The patient was extubated back on the medical floor, not in acute distress. Denies any headache. Denies any chest pain or palpitation. Denies any fever, cough. No abdominal pain. No nausea, vomiting, diarrhea. PHYSICAL EXAMINATION: GENERAL: Mr. Garza is a 62 years old male, moderately built, moderately nourished, not in distress. VITAL SIGNS: As follows: Blood pressure 173/85, pulse 94, respiration 20, temperature 98.8, saturation 97%. Height is 5 feet and 7 inches and weight is 257 pounds. HEENT: Pupils are normal and reactive to light and accommodation. Conjunctivae pink. Sclerae anicteric. Tongue is moist. Trachea is midline. LUNGS: Symmetrical on both sides. Bilateral breath sounds present. Clear on auscultation. CVS: [place] at the fifth intercostal space, half inch middle to midclavicular line. S1 and S2 audible. No murmur, no gallop. ABDOMEN: Normal in appearance. Soft and tympanic. No guarding, no rigidity. No hepatosplenomegaly. 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 Nonfocal neuro examination. Cranial nerves II through XII grossly intact. Sensory and motor system is within normal limits. EXTREMITIES: No cyanosis, no clubbing, no edema. CURRENT MEDICATIONS: Include as follows: Avelox 400 mg p.o. daily, DuoNeb inhaler, amlodipine 2.5 mg p.o. daily, prednisone 20 mg p.o. daily x2 days and 10 mg daily for 2 days and 5 mg daily for 2 days and then discontinue, Protonix 40 mg daily and Pulmicort 1 mg inhaler daily. LABORATORY DATA: Serology, his HIV-1 and HIV-2 antibodies screening was reactive and CD4 count is 384, CD4:CD8 ratio is 1.39. In summary, Mr. Garza is a 62 years old elderly male with hypertension, HIV positive, and questionable asthma, was admitted with sudden onset of shortness of breath and cough and respiratory failure status post intubation and extubation, now back on the floor, questionable reticulonodular lesions in the lung, started on Avelox by pulmonary. 1. Hypertension, blood pressure is still high. We will increase Norvasc to 5 mg daily and titrate as needed. 2. Status post acute respiratory failure. Continue DuoNeb inhaler and Pulmicort. 3. HIV. We will advise to see his ID specialist to reevaluate his antiretroviral medication. 4. Pneumonia. Continue Avelox as per pulmonary. If pulmonary clears, we will try to discharge the patient home tomorrow. Thank you for allowing me to participate in your patient's cadre. The patient was seen and examined. Dov Manzo MD
[2017-08-08] MEDS: Albuterol-Ipratrop 3 mg / 0.5 (3 ml) UD INH SCH ×3 (02:22→14:07)
[2017-08-08 07:59] VITALS: BP 154/86; PULSE 76; TEMP 98.2; O2SAT 95
[2017-08-08 08:10] LABS: BASO % 0.2 % (0.0-2.0); EOS # 0.1 K/uL (0.0-0.7); EOS % 1.7 % (0.0-4.0); HEMATOCRIT 43.4 % (35.0-51.0); LYMPH % 40.1 % (20.0-40.0); MEAN CORPUSCULAR HEMOGLOBIN 28.2 pg (27.0-31.0); MEAN CORPUSCULAR HGB CONC 33.1 g/dL (33.0-37.0); MEAN PLATELET VOLUME 11.1 fL (7.2-11.7); MONO # 0.6 K/uL (0.0-0.8); MONO % 8.4 % (0.0-10.0); RED CELL DISTRIBUTION WIDTH 13.7 % (11.5-14.5); WHITE BLOOD COUNT 7.6 K/uL (4.8-10.8)
[2017-08-08 08:31] LABS: CHLORIDE 100 mmol/L (98-107)
[2017-08-08 08:32] LABS: POTASSIUM 3.9 mmol/L (3.6-5.2); SODIUM 142 mmol/L (132-148)
[2017-08-08 08:34] LABS: ALKALINE PHOSPHATASE 76 U/L (38-126); ALT/SGPT 36 U/L (21-72); AST/SGOT 27 U/L (17-59); BILIRUBIN,TOTAL 0.5 mg/dL (0.2-1.3); BLOOD UREA NITROGEN 18 mg/dL (9-20); CALCIUM 8.5 mg/dl (8.6-10.4); CARBON DIOXIDE 28 mmol/L (22-30); GFR AFRICAN-AMERICAN > 60; GLUCOSE,RANDOM 88 mg/dL (75-110); TOTAL PROTEIN 6.7 g/dL (6.3-8.3)
--- NOTE | 2017-08-08 09:27 | RAD ---
HISTORY: r/o pneumonia COMPARISON: 08/04/2017 TECHNIQUE: Chest PA and lateral FINDINGS: LUNGS: No active pulmonary disease. PLEURA: No significant pleural effusion identified. No pneumothorax apparent. CARDIOVASCULAR: Normal. OSSEOUS STRUCTURES: No significant abnormalities. VISUALIZED UPPER ABDOMEN: Normal. OTHER FINDINGS: None. IMPRESSION: No active disease.
--- NOTE | 2017-08-08 12:33 | CP.PCM.PN ---
Subjective - Date & Time of Evaluation Date of Evaluation: 08/08/17 Time of Evaluation: 12:25 - Subjective Subjective: discharge summary dictated #[id number] Objective - Vital Signs/Intake and Output Vital Signs (last 24 hours): Temp Pulse Resp BP Pulse Ox 98.2 F 76 20 154/86 H 95 08/08/17 07:58 08/08/17 07:58 08/08/17 07:58 08/08/17 07:58 08/08/17 07:58 Intake and Output: 08/08/17 08/08/17 06:59 18:59 Intake Total 360 Balance 360 - Medications Medications: Current Medications Albuterol/Ipratropium (Duoneb 3 Mg/0.5 Mg (3 Ml) Ud) 3 ml INH RQ6 [facility] Last Admin: 08/08/17 08:38 Dose: 3 ml Amlodipine Besylate (Norvasc) 5 mg PO DAILY [facility] Last Admin: 08/08/17 09:31 Dose: 5 mg Budesonide (Pulmicort Respules) 1 mg INH DAILY [facility] Moxifloxacin HCl (Avelox) 400 mg PO DAILY [facility] Last Admin: 08/08/17 09:31 Dose: 400 mg Pantoprazole Sodium (Protonix Inj) 40 mg IVP DAILY [facility] Last Admin: 08/08/17 09:30 Dose: 40 mg Prednisone (Prednisone Tab) 10 mg PO DAILY [facility] Stop: 08/10/17 10:01 Last Admin: 08/08/17 09:31 Dose: 10 mg Prednisone (Prednisone Tab) 5 mg PO DAILY [facility] Stop: 08/12/17 10:01 - Labs Labs: 08/08/17 08:02 08/08/17 08:02 PT 12.8 SECONDS (9.7-12.2) H 08/03/17 17:49 INR 1.1 08/03/17 17:49 APTT 25 SECONDS (21-34) 08/03/17 17:49
--- NOTE | 2017-08-08 13:01 | CARD ---
APPROVED REPORT EKG Measurement Heart [id number] MD [id number] <Conclusion> Sinus tachycardia Left axis deviation Nonspecific ST abnormality Abnormal ECG
--- NOTE | 2017-08-08 15:16 | CP.PCM.PN ---
Subjective - Date & Time of Evaluation Date of Evaluation: 08/08/17 Time of Evaluation: 15:16 - Subjective Subjective: Chief complaint: Respiratory arrest History of present illness: 62-year-old male with history of COPD and asthma brought into the emergency room because of the severe shortness of breath. He was driving, suddenly called 911 when he was driving, and in the field that was unsuccessful intubation, patient was given Solu-Medrol terbutaline and magnesium, brought him to the emergency room. In the emergency room patient was intubated. And was admitted to the intensive care unit. Patient was having poor ER entry in the lungs at that time. Past medical history: History of pneumonia hypertension and asthma. Surgical history none Social history nonsmoker used to be an alcoholic in the past. Allergies no known drug allergy Personal history lives with a girlfriend. Family history significant for premature Hospital medications reviewed in Review of system: Patient is awake and responding at this time. He got extubated from the intensive care unit, and also was transferred to the floor. Clinically he is feeling much better. No chest pain. 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 Intubated, extubated. Currently he is on antibiotic for possible suspected pneumonia. Continue the IV antibiotic at this time. We'll follow the patient patient was noted also have HIV at this time. Patient is being followed up by ID specialist. patient is currently stable for discharge, he will continue the Po antibiotic. He will follow-up with his primary medical doctor. He will follow-up with his infectious disease specialist Objective - Vital Signs/Intake and Output Vital Signs (last 24 hours): Temp Pulse Resp BP Pulse Ox 98.2 F 76 20 154/86 H 95 08/08/17 07:58 08/08/17 07:58 08/08/17 07:58 08/08/17 07:58 08/08/17 07:58 Intake and Output: 08/08/17 08/08/17 06:59 18:59 Intake Total 360 480 Balance 360 480 - Medications Medications: Current Medications Albuterol/Ipratropium (Duoneb 3 Mg/0.5 Mg (3 Ml) Ud) 3 ml INH RQ6 [facility] Last Admin: 08/08/17 14:07 Dose: 3 ml Amlodipine Besylate (Norvasc) 5 mg PO DAILY [facility] Last Admin: 08/08/17 09:31 Dose: 5 mg Budesonide (Pulmicort Respules) 1 mg INH DAILY [facility] Moxifloxacin HCl (Avelox) 400 mg PO DAILY [facility] Last Admin: 08/08/17 09:31 Dose: 400 mg Pantoprazole Sodium (Protonix Inj) 40 mg IVP DAILY [facility] Last Admin: 08/08/17 09:30 Dose: 40 mg Prednisone (Prednisone Tab) 10 mg PO DAILY [facility] Stop: 08/10/17 10:01 Last Admin: 08/08/17 09:31 Dose: 10 mg Prednisone (Prednisone Tab) 5 mg PO DAILY [facility] Stop: 08/12/17 10:01 - Labs Labs: 08/08/17 08:02 08/08/17 08:02 PT 12.8 SECONDS (9.7-12.2) H 08/03/17 17:49 INR 1.1 08/03/17 17:49 APTT 25 SECONDS (21-34) 08/03/17 17:49
[2017-08-08] MEDS ORDERED: Pneumococcal 23-Valent Vaccine IM ONE (16:27)
--- NOTE | 2017-08-09 22:14 | CARD ---
APPROVED REPORT EKG Measurement Heart [id number] VA [id number] <Conclusion> Sinus tachycardia Possible Left atrial enlargement Left axis deviation Abnormal ECG
[2017-08-12] MEDS ORDERED: Budesonide 0.5 mg/2 ml Inhal Susp UD INH SCH (10:00)
--- NOTE | 2017-08-16 02:46 | DS ---
DISCHARGE DIAGNOSES: Hypertension; human immunodeficiency virus positive; diabetes mellitus; acute respiratory failure, status post intubation; acute respiratory failure secondary to possible allergic reaction to ibuprofen and history of asthma. HISTORY OF PRESENT ILLNESS: The patient is a 62-year-old male with past medical history of HIV positive, hypertension, diabetes mellitus, asthma, who has been following up with doctors from [facility], was seen recently and the patient was given ibuprofen for his shoulder pain which the patient was unaware that he was given ibuprofen, and the patient took one pill and started driving, within half an hour, the patient was not able to breathe. He had to jawbone puller and 911 was called. After 911 arrived, the patient was not able to breathe and EMS have tried to intubate the patient on the field, was unsuccessful and the patient was brought into [facility] where the patient was intubated and the patient was admitted for further management. On the day of discharge, the patient was feeling much better. Denied any headache or dizziness. Denied any chest pain, shortness of breath or wheezing. Denied any nausea, vomiting, abdominal pain, diarrhea or constipation. Denied any urinary complaints. Denied any leg pains or leg cramps. Denied any other neurologic symptoms. All other systems reviewed and were found to be negative. PHYSICAL EXAMINATION: GENERAL: A middle-aged male, lying in bed, in no acute distress. VITAL SIGNS: Blood pressure 154/86, pulse 76, respirations 20, temperature 98.2 degrees Fahrenheit and O2 sat is 95% on room air. HEENT: Pupils equal, round and reacting to light and accommodation. Extraocular muscles intact. No icterus, no pallor. No oral thrush. No pharyngeal congestion. No nasal congestion. NECK: Supple. No JVD. No thyromegaly. CHEST: Moving equally bilaterally on respiration. LUNGS: Bilateral vesicular breath sounds. No wheezing. No rhonchi. CARDIOVASCULAR SYSTEM: S1 and S2 present, regular. ABDOMEN: Soft and nontender. Bowel sounds present. No guarding. No rigidity. No rebound tenderness noted. CENTRAL NERVOUS SYSTEM: Alert, awake, and oriented x3. No focal deficits noted. EXTREMITIES: No edema. Palpable peripheral pulses. LABORATORY DATA: On 08/08, WBC 7.6, hemoglobin 14.4, hematocrit 43.4, platelets 139. Sodium 142, potassium 3.9, chloride 100, bicarbonate 28, BUN 18, creatinine 1.0, glucose 87, calcium 8.5. Total bilirubin 0.5, AST 27, ALT 36, alkaline phosphatase 76. Total protein 6.7, albumin 3.4. UA is specific gravity 1.025, protein 1+, blood 3+ and rbc 118. PT was 12.8, INR 1.1, PTT 25, D-dimer 859. HIV positive and CD4 count is 382. Urine drug screen positive for benzodiazepines. Head CT was negative. No definite CT evidence of PE. Left lower lobe atelectasis, superimposed pneumonia is not excluded, lower lobe bronchial wall thickening, retiocular nodular opacities, pulmonary nodules. Head CT negative. HOSPITAL COURSE: The patient was admitted to intensive care unit after the patient was intubated. The patient was started on mechanical ventilation and was started on Avelox for presumed pneumonia. The patient was evaluated by Pulmonary in the ICU. After the patient was stabilized when the patient was able to breathe on his own, the patient was extubated. The patient later claimed that he has been positive for HIV, diabetes and HE WAS ALLERGIC TO NSAIDS and he was given ibuprofen for shoulder pain which he took one pill, later he had the symptoms, the patient had allergic reaction on three prior occasions with Tylenol and NSAIDs, but he never had to be intubated. The patient's daughter brought his home medications from home. While the patient was in the hospital, he was not getting all the medications. He was getting only amlodipine, so the patient was advised to take amlodipine and metoprolol and advised to hold all the other hypertensive medications and advised to follow up with his PMD as per the patient and the patient's daughter. The patient has scheduled appointment on the day after discharge in the morning at [facility]. As the patient has scheduled appointment, advised to follow up with the primary to readjust his blood pressure medication as needed, advised to resume all other medications. The patient's daughter and the patient understand the instructions. As the patient is otherwise hemodynamically stable, the patient was discharged. The patient was evaluated by Pulmonary, was given Avelox to complete the course. CONDITION UPON DISCHARGE: The patient was alert, awake and oriented x3 and hemodynamically stable at the time of discharge. DISCHARGE INSTRUCTIONS: Follow up with PMD, follow up ID and follow up with Pulmonary. DISCHARGE MEDICATIONS: Lipitor 10 mg p.o. at bedtime, Pepcid 1 tablet b.i.d., Flonase 1 spray inhalation b.i.d., Spiriva 1 inhalation daily, metoprolol 25 mg p.o. b.i.d., advised to hold clonidine which he takes 0.1 mg p.o. t.i.d., continue with amlodipine 5 mg p.o. daily, hold hydrochlorothiazide 25 mg p.o. daily, continue with Metformin 500 mg p.o. b.i.d., Complera 1 tablet p.o. daily, Plavix 75 mg p.o. daily and Avelox 400 mg p.o. daily. DISCHARGE DIET: Heart-healthy, low-cholesterol, low-sodium 1800 calorie ADA diet. ACTIVITY: As tolerated. DISCHARGE INSTRUCTIONS: Follow up with PMD, follow up with ID and follow up with Pulmonary. Advised the patient to return to the ED if any symptoms reoccur or worsen. Leonela Manzo MD
--- NOTE | 2017-08-22 19:52 | CP.PCM.PN ---
Subjective - Date & Time of Evaluation Date of Evaluation: 08/06/17 Time of Evaluation: 19:51 - Subjective Subjective: Is having much improvement in the off. No chest pain. He denies any nausea vomiting. Vital signs stable. Clinical stable. We'll continue to monitor. Objective - Vital Signs/Intake and Output Vital Signs (last 24 hours): Temp Pulse Resp BP Pulse Ox 98.2 F 76 20 154/86 H 95 08/08/17 07:58 08/08/17 07:58 08/08/17 07:58 08/08/17 07:58 08/08/17 07:58 - Labs Labs: 08/08/17 08:02 08/08/17 08:02 PT 12.8 SECONDS (9.7-12.2) H 08/03/17 17:49 INR 1.1 08/03/17 17:49 APTT 25 SECONDS (21-34) 08/03/17 17:49
--- NOTE | 2017-08-22 19:52 | CP.PCM.PN ---
Subjective - Date & Time of Evaluation Date of Evaluation: 08/07/17 Time of Evaluation: 19:52 - Subjective Subjective: Is having much improvement in the off. No chest pain. He denies any nausea vomiting. Vital signs stable. Clinical stable. We'll continue to monitor. Objective - Vital Signs/Intake and Output Vital Signs (last 24 hours): Temp Pulse Resp BP Pulse Ox 98.2 F 76 20 154/86 H 95 08/08/17 07:58 08/08/17 07:58 08/08/17 07:58 08/08/17 07:58 08/08/17 07:58 - Labs Labs: 08/08/17 08:02 08/08/17 08:02 PT 12.8 SECONDS (9.7-12.2) H 08/03/17 17:49 INR 1.1 08/03/17 17:49 APTT 25 SECONDS (21-34) 08/03/17 17:49
== END 2017-08-08 17:45 | disposition home or self-care (01) | DRG 707 ==
LOC: C.ER 14:21 → C.9I 16:08 → C.3T 08-05 15:42
PROVIDERS: ADMIT Internal Medicine; ATTEND Internal Medicine
PROC: 0BH17EZ Insertion of Endotracheal Airway into Trachea, Via Natural or Artificial Opening (ICD-10-PCS; principal; 2017-08-03)
PROC: 5A1945Z Respiratory Ventilation, 24-96 Consecutive Hours (ICD-10-PCS; 2017-08-03)
DX: J96.01 Acute respiratory failure with hypoxia (principal); T39.315A Adverse effect of propionic acid derivatives, initial encounter; B20 Human immunodeficiency virus [HIV] disease; J18.9 Pneumonia, unspecified organism; J44.0 Chronic obstructive pulmonary disease with (acute) lower respiratory infection; J44.1 Chronic obstructive pulmonary disease with (acute) exacerbation; I48.91 Unspecified atrial fibrillation; E66.9 Obesity, unspecified; I10 Essential (primary) hypertension; Z87.01 Personal history of pneumonia (recurrent); Z88.6 Allergy status to analgesic agent; Z68.41 Body mass index [BMI] 40.0-44.9, adult; E11.9 Type 2 diabetes mellitus without complications